=== PATIENT | female | born 1990 | race Caucasian/White ===

== ENCOUNTER 2017-08-14 18:20 | Inpatient (IN) | payer BC ==
[2017-08-14] MEDS ORDERED: Ondansetron 4 MG/2 ML SDV IVPUSH PRN ×2 (19:39→19:44)
[2017-08-14] MEDS ORDERED: Acetaminophen 325 MG Tab PO PRN (19:39)
[2017-08-14] MEDS ORDERED: Ampicillin 2 GM in Sodium Chloride 0.9% 100 ML IV ONE (19:39)
[2017-08-14] MEDS ORDERED: Sodium Chloride 0.9% 10 ML Syringe FLUSH PRN (19:39)
[2017-08-14] MEDS ORDERED: fentaNYL 100 MCG/2 ML SDV EPIDUR PRN (19:44)
[2017-08-14] MEDS ORDERED: diphenhydrAMINE 50 MG/ML SDV IVPUSH PRN (19:44)
[2017-08-14] MEDS ORDERED: ePHEDrine 50 MG/ML SDV IVPUSH PRN (19:44)
[2017-08-14] MEDS ORDERED: Oxytocin/Lactated Ringers 10 UNIT/1,000 ML BAG IV SCH (19:45)
[2017-08-14] MEDS: Lactated Ringers 1,000 ML IV SCH ×2 (20:30→22:25)
--- NOTE | 2017-08-14 20:52 | PCM.LDHP ---
L&D History of Present Illness - General Date of Service: 08/14/17 Admit Problem/Dx: Patient Status Order with Admit Dx/Problem 08/14/17 19:39 Patient Status [ADT] Routine Admission Diagnosis/Problem Admission Diagnosis/Problem Source of Information: Patient History Limitations: Reports: No Limitations - History of Present Illness Introduction:: Ivet Gerber is a 27-year-old at 40 weeks 4 days by LMP consistent with 21 week ultrasound. She presents secondary to increased contractions that started approximately 3 AM on 08/14/2017. She reports that she had a small amount of leaking of fluid at that time and her contractions started to increase. She reports that this continue to increased throughout the day and were more regular with contractions about every 4 minutes before she came into the hospital. She also reports that the contractions had increased in strength. She reports good movement. She reports that she is having a small amount of bleeding with some of the mucus discharge. Denies any fevers or chills. Denies any nausea or vomiting. Timing/Duration: Reports: gradual onset Location, : Reports: Abdomen, Lower back (About every 4 minutes) Severity: Moderate Present Illness Comments:: Ivet Gerber is a 27-year-old at 40 weeks and 4 days who has routine care with Dr. Cora Shirley. She started care at 4 weeks. Her has been overall uncomplicated. Her initial labs show A - blood type with negative antibodies. She received RhoGAM at 28 weeks. Her hematocrit on 01/06/2017 was 42.8% with hemoglobin of 15.2. Platelets were 214. Repeat platelets exam on 05/09/2017 was 165. Her hepatitis B surface antigen was negative, HIV negative, rubella immune, RPR negative. Her Pap smear was normal in August 2015. Gonorrhea and chlamydia were negative. Urine culture was negative. She had an elevated 1 hour with level of 140. She was diagnosed with gestational diabetes based on an abnormal 3 hour values of 1 hour of 183 and 2 hour of 168, fasting was 81 and three-hour was 144. She was GBS positive. The only other complication of her is history of epilepsy that has been well controlled on Keppra. She denies any seizures throughout the and has not had to change her medication dose her . She has had a 28 pound weight gain throughout . She is also noted to have a low-lying placenta early in that resolved on her ultrasounds. - Related Data Allergies/Adverse Reactions: Allergies Allergy/AdvReac Type Severity Reaction Status Date / Time hydrocodone Allergy Rash Verified 08/14/17 18:38 Home Medications: Home Meds PNV95/Ferrous Fumarate/FA [ Tablet] 1 each PO DAILY 08/14/17 [History] levETIRAcetam [Keppra Xr] 2,500 mg PO DAILY 08/14/17 [History] Past Medical History : 1 Para: 0 LMP (Approximate): Other (See Below) (11/03/2016 with [facility] of 08/10/2017) Neurological History: Reports: Seizure - Past Surgical History GI Surgical History: Reports: None Female Surgical History: Reports: None Social & Family History - Tobacco Use Smoking Status *Q: Never Smoker - Alcohol Use Alcohol Use History: No - Recreational Drug Use Recreational Drug Use: No - Sexual History Sexual History: Reports: Sexually Active, Single Partner - Living Situation & Occupation Living situation: Reports: H&P Review of Systems - Review of Systems: Review Of Systems: See Below General: Denies: Fever, Chills HEENT: Denies: Visual Changes Pulmonary: Denies: Shortness of Breath, Wheezing, Cough Cardiovascular: Denies: Chest Pain, Palpitations Gastrointestinal: Denies: Abdominal Pain, Constipation, Diarrhea, Nausea, Vomiting Genitourinary: Denies: Dysuria, Frequency, Burning, Pain, Urgency Musculoskeletal: Denies: Joint Pain, Muscle Pain Skin: Denies: Rash Psychiatric: Denies: Depression Neurological: Denies: Headache, Seizure (No recent seizures throughout ) L&D Exam - Exam Exam: See Below - Vital Signs Weight: 73.255 kg - OB Specific Contraction Duration (sec): 45-60 Contraction Frequency (min): 4 Contraction Intensity: Moderate to Strong Movement: Active Heart Tones: Present Heart Tones per Min: 130 (Positive accelerations, occasional variable decelerations) Heart Rate (FHR) Variability: Moderate (6-25 bmp) Presentation: Vertex Estimated Weight: 8 pounds by Selwyn's - Fernandez Score Fernandez Score Cervix Position: Midposition Fernandez Score Consistency: Medium Fernandez Score Effacement: 51-70% Fernandez Score Dilation: 3-4 cm Fernandez Score 's Station: -3 Fernandez Score Total: 6 - Exam General: Alert, Oriented HEENT: EOMI Neck: Supple, Trachea Midline Lungs: Clear to Auscultation, Normal Respiratory Effort Cardiovascular: Regular Rate, Regular Rhythm GI/Abdominal Exam: Soft, Non-Tender Genitourinary: Normal external exam, Cervical dilitation. No: Cervix motion tenderness, Vaginal bleeding, Vaginal discharge, Vaginal lesions Back Exam: Normal Inspection. No: CVA Tenderness (L), CVA Tenderness (R) Extremities: Pedal Edema (1+) Skin: Warm, Dry, Intact DTR: 1+: Bicep (L), 2+: Bicep (R) Psychiatric: Alert, Normal Affect, Normal Mood - Patient Data Lab Results Last 24 hrs: Laboratory Results - last 24 hr 08/14/17 08/14/17 Range/Units 20:00 20:00 WBC 12.77 H (3.98-10.04) K/mm3 RBC 4.52 (3.98-5.22) M/mm3 Hgb 14.5 (11.2-15.7) gm/L Hct 41.0 (34.1-44.9) % MCV 90.7 (79.4-94.8) fl MCH 32.1 (25.6-32.2) pg MCHC 35.4 (32.2-35.5) g/dl RDW Std Deviation 42.5 (36.4-46.3) fL Plt Count 167 L (182-369) K/mm3 MPV 11.4 (9.4-12.3) fl Neut % (Auto) 80.2 H (34.0-71.1) % Lymph % (Auto) 12.8 L (19.3-51.7) % [place] % (Auto) 6.3 (4.7-12.5) % Eos % (Auto) 0.4 L (0.7-5.8) Baso % (Auto) 0.1 (0.1-1.2) % Neut # (Auto) 10.24 H (1.56-6.13) K/mm3 Lymph # (Auto) 1.64 (1.18-3.74) K/mm3 [place] # (Auto) 0.81 H (0.24-0.36) K/mm3 Eos # (Auto) 0.05 (0.04-0.36) K/mm3 Baso # (Auto) 0.01 (0.01-0.08) K/mm3 BUN 14 (7-18) mg/dL Creatinine 0.8 (0.55-1.02) mg/dL Est Cr Clr Drug Dosing 80.18 mL/min Estimated GFR (MDRD) > 60 (>60) mL/min Uric Acid 4.9 (2.6-6.0) mg/dL AST 15 (15-37) U/L ALT 18 (14-59) U/L Lactate Dehydrogenase 203 (81-234) U/L Result Diagrams: 08/14/17 20:00 08/14/17 20:00 - Problem List (1) 40 weeks gestation of SNOMED Code(s): 81338327 ICD Code: Z3A.40 - 40 WEEKS GESTATION OF Status: Acute Current Visit: Yes (2) Spontaneous onset of labor SNOMED Code(s): 05946919 ICD Code: [id number] - Status: Acute Current Visit: Yes (3) Epilepsy SNOMED Code(s): 16655896 ICD Code: G40.909 - EPILEPSY, UNSP, NOT INTRACTABLE, WITHOUT STATUS EPILEPTICUS Status: Acute Current Visit: Yes (4) Rh negative status during , third trimester, single gestation SNOMED Code(s): 376627273 ICD Code: O09.893 - SUPERVISION OF OTHER HIGH RISK PREGNANCIES, THIRD TRIMESTER Status: Acute Current Visit: Yes (5) GBS (group B Streptococcus carrier), +RV culture, currently SNOMED Code(s): 17447526 ICD Code: O99.820 - STREPTOCOCCUS B CARRIER STATE COMPLICATING Status: Acute Current Visit: Yes (6) GDM (gestational diabetes mellitus), class A1 SNOMED Code(s): 30774561 ICD Code: O24.410 - GESTATIONAL DIABETES MELLITUS IN , DIET CONTROLLED Status: Acute Current Visit: Yes Problem List Initiated/Reviewed/Updated: Yes Orders Last 24hrs: Active Orders 24 hr Category Date Time Status Patient Status [ADT] Routine ADT 08/14/17 19:39 Active Activity as Tolerated [RC] PFP Care 08/14/17 19:39 Active Antiembolic Devices [RC] .Routine Care 08/14/17 19:40 Active Blood Glucose Check, Bedside [RC] Q2HR Care 08/14/17 19:45 Active Communication Order [RC] ASDIRECTED Care 08/14/17 19:39 Active Heart Tones [RC] ASDIRECTED Care 08/14/17 19:39 Active Heart Tones [RC] ASDIRECTED Care 08/14/17 19:40 Active Notify Provider Vital Signs [RC] PRN Care 08/14/17 19:43 Active Notify Provider [RC] PFP Care 08/14/17 19:39 Active Notify Provider [RC] PRN Care 08/14/17 19:39 Active Peripheral IV Care [RC] . DIRECTED Care 08/14/17 19:40 Active Pump Management, Intrathecal [RC] ASDIRECTED Care 08/14/17 19:43 Active Urinary Catheter Assessment [RC] ASDIRECTED Care 08/14/17 19:39 Active VTE/DVT Education [RC] PER UNIT ROUTINE Care 08/14/17 19:40 Active Vital Signs [RC] PER UNIT ROUTINE Care 08/14/17 19:39 Active CREATININE,URINE RAND [URCHEM] Routine Lab 08/14/17 19:47 Uncollected PROTEIN,URINE RANDOM [URCHEM] Routine Lab 08/14/17 19:46 Uncollected Acetaminophen [Tylenol] Med 08/14/17 19:39 Active 650 mg PO Q6H PRN Ampicillin 1 gm Med 08/15/17 00:00 Active Sodium Chloride 0.9% [Normal Saline] 100 ml IV Q4H Bupivacaine/fentaNYL/NS [fentaNYL/Bupivacaine/NS 2 MCG- Med 08/14/17 19:45 Active 0.125% 100 ML] 100 ml EPIDUR ASDIRECTED Lactated Ringers [Ringers, Lactated] 1,000 ml Med 08/14/17 19:45 Active IV ASDIRECTED Ondansetron [Zofran] Med 08/14/17 19:44 Active 4 mg IVPUSH ONETIME PRN Ondansetron [Zofran] Med 08/14/17 19:39 Active 4 mg IVPUSH Q4H PRN Oxytocin/Lactated Ringers [Pitocin in LR 10 Units/1,000 Med 08/14/17 19:45 Active ML] 10 unit in 1,000 ml IV .CONTINUOUS Sodium Chloride 0.9% [Saline Flush] Med 08/14/17 19:39 Active 10 ml FLUSH ASDIRECTED PRN diphenhydrAMINE [Benadryl] Med 08/14/17 19:44 Active 25 mg IVPUSH Q6H PRN ePHEDrine [ePHEDrine Sulfate] Med 08/14/17 19:44 Active 5 mg IVPUSH ASDIRECTED PRN fentaNYL [Sublimaze] Med 08/14/17 19:44 Active 100 mcg EPIDUR Q3H PRN DVT/VTE Prophylaxis Reflex [OM.PC] Routine Oth 08/14/17 19:39 Ordered Electronic Heart Tones Ext w TOCO [WOMSER] Ot 08/14/17 19:39 Ordered Routine Electronic Heart Tones Internal [WOMSER] Per Unit Oth 08/14/17 19:39 Ordered Routine PIH Panel [OM.PC] Routine Ot 08/14/17 19:39 Ordered Peripheral IV Insertion Adult [OM.PC] Routine Oth 08/14/17 19:39 Ordered Telemetry Monitoring [WOMSER] Routine Ot 08/14/17 19:39 Ordered Resuscitation Status Routine Resus Stat 08/14/17 19:39 Ordered Medication Orders Acetaminophen (Tylenol) 650 mg PO Q6H PRN PRN Reason: Pain (Mild 1-3) and fever Diphenhydramine HCl (Benadryl) 25 mg IVPUSH Q6H PRN PRN Reason: Pruritis Ephedrine Sulfate (Ephedrine Sulfate) 5 mg IVPUSH ASDIRECTED PRN PRN Reason: Hypotension Fentanyl (Sublimaze) 100 mcg EPIDUR Q3H PRN PRN Reason: Pain Fentanyl/Bupivacaine HCl (Fentanyl/Bupivacaine/Ns 2 Mcg-0.125% 100 Ml) 100 ml EPIDUR ASDIRECTED [facility] Ampicillin Sodium 1 gm/ Sodium (Chloride) 100 mls @ 200 mls/hr IV Q4H [facility] Lactated Ringer's (Ringers, Lactated) 1,000 mls @ 100 mls/hr IV ASDIRECTED [facility] Last Admin: 08/14/17 20:30 Dose: 100 mls/hr Oxytocin/Lactated Ringer's (Pitocin In Lr 10 Units/1,000 Ml) 10 unit in 1,000 mls @ 100 mls/hr IV .CONTINUOUS [facility] Ondansetron HCl (Zofran) 4 mg IVPUSH ONETIME PRN PRN Reason: Nausea/Vomiting Ondansetron HCl (Zofran) 4 mg IVPUSH Q4H PRN PRN Reason: Nausea/Vomiting Sodium Chloride (Saline Flush) 10 ml FLUSH ASDIRECTED PRN PRN Reason: Keep Vein Open Assessment/Plan Comment:: * Patient desires to continue to monitor for cervical change with without augmentation of labor. Will recheck cervix at approximately 00 30 for cervical change and consider augmentation with Pitocin at that time. * CBC, platelets, creatinine, AST, LT all within normal limits. Follow-up on urine protein to creatinine ratio. This is being checked secondary to elevated blood pressure of 140/100 on initial presentation. We'll continue to monitor blood pressures closely throughout labor. * Patient may have an epidural for anesthesia as desired. * Ampicillin 2 g now and then 1 g every 4 hours until delivery for GBS prophylaxis * IV fluids at 125 mL per hour * Patient to continue Keppra for history of epilepsy * Will check fingerstick blood glucose every 2 hours while in labor. If abnormally high (greater than 110) will consider initiation of insulin drip. * Anticipate vaginal delivery unless otherwise indicated Moise De Paz M.D. 9:12 PM 08/14/2017
[2017-08-14] MEDS: Bupivacaine/fentaNYL/NS 100 ML Bag EPIDUR SCH (22:39)
[2017-08-15] MEDS: Lactated Ringers 1,000 ML IV SCH (00:22)
[2017-08-15] MEDS ORDERED: Oxytocin/Lactated Ringers 10 UNIT/1,000 ML BAG IV SCH (01:00)
[2017-08-15] MEDS: Ampicillin 1 GM in Sodium Chloride 0.9% 100 ML IV SCH ×4 (01:01→17:58)
--- NOTE | 2017-08-15 01:15 | PCM.PREANE ---
Preanesthetic Assessment - Procedure Proposed Procedure: LAUERNCE - Anesthesia/Transfusion/Family Hx Anesthesia History: Prior Anesthesia Without Reaction Family History of Anesthesia Reaction: No Transfusion History: No Prior Transfusion(s) - Review of Systems General: No Symptoms Pulmonary: No Symptoms Cardiovascular: No Symptoms Gastrointestinal: Other (GERD with ) Neurological: Other (seizure disorder, last seizure was 12 years ago. Takes keppra daily) Other: Reports: Diabetes (Gestational DM) - Physical Assessment NPO Status Date: 08/14/17 NPO Status Time: 17:00 O2 Sat by Pulse Oximetry: 99 Respiratory Rate: 14 Vital Signs: Last Vital Signs Temp 36.6 C 08/14/17 21:50 Pulse 81 08/14/17 21:50 Resp 14 08/14/17 21:50 BP 117/72 08/14/17 21:50 Pulse Ox 99 08/14/17 21:50 Height: 1.56 m Weight: 73.255 kg ASA Class: 2 Mental Status: Alert & Oriented x3 Airway Class: Mallampati = 1 Dentition: Reports: Normal Dentition Thyro-Mental Finger Breadths: 3 Mouth Opening Finger Breadths: 3 ROM/Head Extension: Full Lungs: Clear to Auscultation, Normal Respiratory Effort Cardiovascular: Regular Rate, Regular Rhythm - Lab Values: Laboratory Last Values WBC 12.77 K/mm3 (3.98-10.04) H 08/14/17 20:00 RBC 4.52 M/mm3 (3.98-5.22) 08/14/17 20:00 Hgb 14.5 gm/L (11.2-15.7) 08/14/17 20:00 Hct 41.0 % (34.1-44.9) 08/14/17 20:00 MCV 90.7 fl (79.4-94.8) 08/14/17 20:00 MCH 32.1 pg (25.6-32.2) 08/14/17 20:00 MCHC 35.4 g/dl (32.2-35.5) 08/14/17 20:00 RDW Std Deviation 42.5 fL (36.4-46.3) 08/14/17 20:00 Plt Count 167 K/mm3 (182-369) L 08/14/17 20:00 MPV 11.4 fl (9.4-12.3) 08/14/17 20:00 Neut % (Auto) 80.2 % (34.0-71.1) H 08/14/17 20:00 Lymph % (Auto) 12.8 % (19.3-51.7) L 08/14/17 20:00 [place] % (Auto) 6.3 % (4.7-12.5) 08/14/17 20:00 Eos % (Auto) 0.4 (0.7-5.8) L 08/14/17 20:00 Baso % (Auto) 0.1 % (0.1-1.2) 08/14/17 20:00 Neut # (Auto) 10.24 K/mm3 (1.56-6.13) H 08/14/17 20:00 Lymph # (Auto) 1.64 K/mm3 (1.18-3.74) 08/14/17 20:00 [place] # (Auto) 0.81 K/mm3 (0.24-0.36) H 08/14/17 20:00 Eos # (Auto) 0.05 K/mm3 (0.04-0.36) 08/14/17 20:00 Baso # (Auto) 0.01 K/mm3 (0.01-0.08) 08/14/17 20:00 BUN 14 mg/dL (7-18) 08/14/17 20:00 Creatinine 0.8 mg/dL (0.55-1.02) 08/14/17 20:00 Est Cr Clr Drug Dosing 80.18 mL/min 08/14/17 20:00 Estimated GFR (MDRD) > 60 mL/min (>60) 08/14/17 20:00 POC Glucose 86 mg/dL (70-105) 08/15/17 00:00 Uric Acid 4.9 mg/dL (2.6-6.0) 08/14/17 20:00 AST 15 U/L (15-37) 08/14/17 20:00 ALT 18 U/L (14-59) 08/14/17 20:00 Lactate Dehydrogenase 203 U/L (81-234) 08/14/17 20:00 Ur Random Creatinine 17.9 mg/dL (30.0-125.0) L 08/14/17 21:30 U Random Total Protein 139.8 mg/dL (0.0-11.8) H 08/14/17 21:30 - Allergies Allergies/Adverse Reactions: Allergies Allergy/AdvReac Type Severity Reaction Status Date / Time hydrocodone Allergy Rash Verified 08/14/17 18:38 - Blood Blood Available: No Product(s) Available: None - Anesthesia Plan Pre-Op Medication Ordered: None - Acknowledgements Anesthesia Type Planned: Epidural Pt an Appropriate Candidate for the Planned Anesthesia: Yes Alternatives and Risks of Anesthesia Discussed w Pt/Guardian: Yes Pt/Guardian Understands and Agrees with Anesthesia Plan: Yes PreAnesthesia Questionnaire Neurological History: Reports: Seizure - Past Surgical History GI Surgical History: Reports: None Female Surgical History: Reports: None - SUBSTANCE USE Smoking Status *Q: Never Smoker Recreational Drug Use History: No - HOME MEDS Home Medications: Home Meds PNV95/Ferrous Fumarate/FA [ Tablet] 1 each PO DAILY 08/14/17 [History] levETIRAcetam [Keppra Xr] 2,500 mg PO DAILY 08/14/17 [History] - CURRENT (IN HOUSE) MEDS Current Meds: Current Medications Acetaminophen (Tylenol) 650 mg PO Q6H PRN PRN Reason: Pain (Mild 1-3) and fever Diphenhydramine HCl (Benadryl) 25 mg IVPUSH Q6H PRN PRN Reason: Pruritis Ephedrine Sulfate (Ephedrine Sulfate) 5 mg IVPUSH ASDIRECTED PRN PRN Reason: Hypotension Fentanyl (Sublimaze) 100 mcg EPIDUR Q3H PRN PRN Reason: Pain Last Admin: 08/14/17 22:39 Dose: 100 mcg Fentanyl/Bupivacaine HCl (Fentanyl/Bupivacaine/Ns 2 Mcg-0.125% 100 Ml) 100 ml EPIDUR ASDIRECTED [facility] Last Admin: 08/14/17 22:39 Dose: 100 ml Ampicillin Sodium 1 gm/ Sodium (Chloride) 100 mls @ 200 mls/hr IV Q4H [facility] Last Admin: 08/15/17 01:01 Dose: 200 mls/hr Lactated Ringer's (Ringers, Lactated) 1,000 mls @ 100 mls/hr IV ASDIRECTED [facility] Last Admin: 08/15/17 00:22 Dose: 100 mls/hr Oxytocin/Lactated Ringer's (Pitocin In Lr 10 Units/1,000 Ml) 10 unit in 1,000 mls @ 100 mls/hr IV .CONTINUOUS [facility] Oxytocin/Lactated Ringer's (Pitocin In Lr 10 Units/1,000 Ml) 10 unit in 1,000 mls @ 12 mls/hr IV TITRATE [facility]; 2 MUNITS/MIN PRN Reason: Protocol Last Admin: 08/15/17 01:12 Dose: 2 munits/min, 12 mls/hr Ondansetron HCl (Zofran) 4 mg IVPUSH ONETIME PRN PRN Reason: Nausea/Vomiting Ondansetron HCl (Zofran) 4 mg IVPUSH Q4H PRN PRN Reason: Nausea/Vomiting Sodium Chloride (Saline Flush) 10 ml FLUSH ASDIRECTED PRN PRN Reason: Keep Vein Open Discontinued Medications Ampicillin Sodium 2 gm/ Sodium (Chloride) 100 mls @ 200 mls/hr IV ONETIME ONE Stop: 08/14/17 20:08 Last Admin: 08/14/17 20:33 Dose: 200 mls/hr
[2017-08-15] MEDS ORDERED: Sodium Chloride 0.9% 1,000 ML ONE (04:57)
--- NOTE | 2017-08-15 05:09 | PCM.PNLD ---
Labor Progress Note - VS & Meds Vital Signs: Last Vital Signs Temp 36.6 C 08/14/17 21:50 Pulse 81 08/14/17 21:50 Resp 14 08/15/17 01:15 BP 117/72 08/14/17 21:50 Pulse Ox 99 08/15/17 01:15 Active Medications: Current Medications Acetaminophen (Tylenol) 650 mg PO Q6H PRN PRN Reason: Pain (Mild 1-3) and fever Diphenhydramine HCl (Benadryl) 25 mg IVPUSH Q6H PRN PRN Reason: Pruritis Ephedrine Sulfate (Ephedrine Sulfate) 5 mg IVPUSH ASDIRECTED PRN PRN Reason: Hypotension Fentanyl (Sublimaze) 100 mcg EPIDUR Q3H PRN PRN Reason: Pain Last Admin: 08/14/17 22:39 Dose: 100 mcg Fentanyl/Bupivacaine HCl (Fentanyl/Bupivacaine/Ns 2 Mcg-0.125% 100 Ml) 100 ml EPIDUR ASDIRECTED [facility] Last Admin: 08/14/17 22:39 Dose: 100 ml Ampicillin Sodium 1 gm/ Sodium (Chloride) 100 mls @ 200 mls/hr IV Q4H [facility] Last Admin: 08/15/17 04:30 Dose: 200 mls/hr Lactated Ringer's (Ringers, Lactated) 1,000 mls @ 100 mls/hr IV ASDIRECTED [facility] Last Admin: 08/15/17 00:22 Dose: 100 mls/hr Oxytocin/Lactated Ringer's (Pitocin In Lr 10 Units/1,000 Ml) 10 unit in 1,000 mls @ 100 mls/hr IV .CONTINUOUS [facility] Oxytocin/Lactated Ringer's (Pitocin In Lr 10 Units/1,000 Ml) 10 unit in 1,000 mls @ 12 mls/hr IV TITRATE [facility]; 2 MUNITS/MIN PRN Reason: Protocol Last Titration: 08/15/17 02:37 Dose: 0 munits/min, 0 mls/hr Ondansetron HCl (Zofran) 4 mg IVPUSH ONETIME PRN PRN Reason: Nausea/Vomiting Ondansetron HCl (Zofran) 4 mg IVPUSH Q4H PRN PRN Reason: Nausea/Vomiting Sodium Chloride (Saline Flush) 10 ml FLUSH ASDIRECTED PRN PRN Reason: Keep Vein Open Discontinued Medications Ampicillin Sodium 2 gm/ Sodium (Chloride) 100 mls @ 200 mls/hr IV ONETIME ONE Stop: 08/14/17 20:08 Last Admin: 08/14/17 20:33 Dose: 200 mls/hr Sodium Chloride (Normal Saline) Confirm Administered Dose 1,000 mls @ as directed .ROUTE .STK-MED ONE Stop: 08/15/17 04:58 - Uterine Contractions Uterine Monitoring Mode: External [place] Contraction Frequency (min): 4 Contraction Duration (sec): 45-60 Contraction Intensity: Moderate to Strong Uterine Resting Tone: Soft - Monitoring Monitor Mode: Doppler/Auscultation Heart Rate (FHR) Baseline: 130 Heart Rate (FHR) Variability: Moderate (6-25 bmp) Accelerations: Present, 15x15 Decelerations: Variable, Recurrent (>50% x 20 min) Strip Review: Category II - Vaginal Exam Dilation (cm): 6 Effacement (Percent): 80 Station: -2 Cervical Position: Anterior Sterile Vaginal Exam Performed By: Moise De Paz - Labor Progress (Free Text) Labor Progress: IUPC placed and initiated amnioinfusion for recurrent variable decelerations that occur with over 50% of contractions. IUPC placed without difficulty and mother and baby tolerated placement well. Moise De Paz MD 5:09 AM 08/15/17
[2017-08-15] MEDS ORDERED: Sodium Chloride 0.9% 1,000 ML IV SCH (05:10)
[2017-08-15] MEDS: Bupivacaine/fentaNYL/NS 100 ML Bag EPIDUR SCH (06:18)
--- NOTE | 2017-08-15 07:57 | PCM.SN ---
- Free Text/Narrative Note: 0700 Assumed care for this patient at 0700. Presented last night in labor, about 2- 3 cm dilated. Had some variable decelerations at times overnight which increased in frequency after AROM. Amnioinfusion started around 0500 this AM. Still with some variables since, but not repetitive and with moderate variability in between. SVE at 0645 by nursing was 7 / 90% / 2-. Will continue to monitor closely at this time. Defer re-starting pitocin. Check again at least by 0900 if not indicated sooner. Patient agrees with plan of care Cora Shirley MD
--- NOTE | 2017-08-15 10:02 | PCM.PNLD ---
Labor Progress Note - VS & Meds Vital Signs: Last Vital Signs Temp 36.6 C 08/14/17 21:50 Pulse 81 08/14/17 21:50 Resp 14 08/15/17 01:15 BP 117/72 08/14/17 21:50 Pulse Ox 99 08/15/17 01:15 Active Medications: Current Medications Acetaminophen (Tylenol) 650 mg PO Q6H PRN PRN Reason: Pain (Mild 1-3) and fever Diphenhydramine HCl (Benadryl) 25 mg IVPUSH Q6H PRN PRN Reason: Pruritis Ephedrine Sulfate (Ephedrine Sulfate) 5 mg IVPUSH ASDIRECTED PRN PRN Reason: Hypotension Fentanyl (Sublimaze) 100 mcg EPIDUR Q3H PRN PRN Reason: Pain Last Admin: 08/14/17 22:39 Dose: 100 mcg Fentanyl/Bupivacaine HCl (Fentanyl/Bupivacaine/Ns 2 Mcg-0.125% 100 Ml) 100 ml EPIDUR ASDIRECTED [facility] Last Admin: 08/15/17 06:18 Dose: 100 ml Ampicillin Sodium 1 gm/ Sodium (Chloride) 100 mls @ 200 mls/hr IV Q4H [facility] Last Admin: 08/15/17 08:23 Dose: 200 mls/hr Lactated Ringer's (Ringers, Lactated) 1,000 mls @ 100 mls/hr IV ASDIRECTED [facility] Last Admin: 08/15/17 00:22 Dose: 100 mls/hr Oxytocin/Lactated Ringer's (Pitocin In Lr 10 Units/1,000 Ml) 10 unit in 1,000 mls @ 100 mls/hr IV .CONTINUOUS [facility] Oxytocin/Lactated Ringer's (Pitocin In Lr 10 Units/1,000 Ml) 10 unit in 1,000 mls @ 12 mls/hr IV TITRATE [facility]; 2 MUNITS/MIN PRN Reason: Protocol Last Titration: 08/15/17 09:50 Dose: 1 munits/min, 6 mls/hr Sodium Chloride (Normal Saline) 1,000 mls @ 200 mls/hr IV ASDIRECTED [facility] PRN Reason: Protocol Last Admin: 08/15/17 05:10 Dose: 200 mls/hr Ondansetron HCl (Zofran) 4 mg IVPUSH ONETIME PRN PRN Reason: Nausea/Vomiting Ondansetron HCl (Zofran) 4 mg IVPUSH Q4H PRN PRN Reason: Nausea/Vomiting Sodium Chloride (Saline Flush) 10 ml FLUSH ASDIRECTED PRN PRN Reason: Keep Vein Open Discontinued Medications Ampicillin Sodium 2 gm/ Sodium (Chloride) 100 mls @ 200 mls/hr IV ONETIME ONE Stop: 08/14/17 20:08 Last Admin: 08/14/17 20:33 Dose: 200 mls/hr Sodium Chloride (Normal Saline) Confirm Administered Dose 1,000 mls @ as directed .ROUTE .STK-MED ONE Stop: 08/15/17 04:58 Last Admin: 08/15/17 05:00 Dose: Not Given - Uterine Contractions Uterine Monitoring Mode: IUPC Contraction Intensity: Moderate to Strong Uterine Resting Tone: Soft - Monitoring Monitor Mode: External Ultrasound Heart Rate (FHR) Baseline: 135 Heart Rate (FHR) Variability: Moderate (6-25 bmp) Accelerations: Present, 15x15 Decelerations: Variable, Recurrent (>50% x 20 min) Strip Review: Category II - Vaginal Exam Dilation (cm): 7-8 Effacement (Percent): 100 Station: 0 Cervical Position: Anterior - Labor Progress (Free Text) Labor Progress: Patient has had continued variable decelerations. Some of these have been deeper into the 80-90's and wider. Reviewed with patient findings on tracing. Her cervix has been similar since about 0645 this AM. Can start pitocin, but the concern with this is worsening variable decelerations. We could also proceed immediately to a . Reviewed risks and benefits of both options. At this time patient agreeable to trial of pitocin. Will start at 1. IUPC removed as well as does not seem to be reducing variable decelerations. Will stay on unit to continue to monitor closely
[2017-08-15] MEDS ORDERED: Metoclopramide 10 MG/2 ML SDV ONE (10:25)
[2017-08-15] MEDS ORDERED: Citric Acid/Sodium Citrate Solution 30 ML Cup ONE (10:25)
[2017-08-15] MEDS ORDERED: Metoclopramide 10 MG/2 ML SDV IVPUSH ONE (10:28)
[2017-08-15] MEDS ORDERED: Citric Acid/Sodium Citrate Solution 30 ML Cup PO ONE (10:28)
[2017-08-15] MEDS ORDERED: ceFAZolin 2 GM in Premix Bag 1 BAG IV ONE (10:28)
--- NOTE | 2017-08-15 10:28 | PCM.SN ---
- Free Text/Narrative Note: Patient has been on 1 of pitocin. Still with some variables, largest of which down to the 90's for 1 minute. Discussed with patient I don't think we can continue to increase pitocin and her SVE remains similar as expected. Reviewed moving forward with PLTCS and she agrees with this. Cora Shirley MD
--- NOTE | 2017-08-15 10:30 | PCM.OPNOTE ---
- General Post-Op/Procedure Note Date of Surgery/Procedure: 08/15/17 Operative Procedure(s): Primary Low Transverse Findings: Baby boy in a vertex presentation, straight OP, with triple nuchal cord. Weight of 6 lbs 11 oz. APGARS of 4, 6, 8. Normal appearance of the uterus, fallopian tubes, and ovaries otherwise. Pre Op Diagnosis: 40 5/7 wks gestation. GODMA1. FTP in 1st stage. NRFS - recurrent variables despite amnioinfusion Post-Op Diagnosis: As above - straight OP presentation to baby with triple nuchal Anesthesia Technique: Epidural Primary Surgeon: Cora Shirley Anesthesia Provider: Kiet Stanley Pathology: Cord blood collected. Placenta discarded Fluid Replacement, Intraop: 1,700 Output, Urine Amount: 450 EBL in mLs: 300 Complications: None Condition: Good Free Text/Narrative:: The risks, benefits, indications, potential complications, and alternatives were explained to the patient and informed consent obtained. After induction of anesthesia, the patient was placed in a supine position and then draped and prepped in the usual sterile manner. A Pfannenstiel incision was made and carried down through the subcutaneous tissue to the fascia. Fascial incision was made and extended transversely. The fascia was from the underlying rectus tissue superiorly and inferiorly. The peritoneum was identified and entered. Peritoneal incision was extended longitudinally. The utero-vesical peritoneal reflection was incised transversely and the bladder flap was bluntly freed from the lower uterine segment. A low transverse uterine incision was made sharply with a scalpel and extended bluntly in a cephalocaudad direction. A hand was placed into the uterus and head delivered through the hysterotomy. Triple nuchal then reduced. Remainder of infant then delivered After the umbilical cord was clamped and cut cord blood was obtained for evaluation. The placenta was removed intact and appeared normal. The uterus was exteriorized and cleared of clots. The uterine outline, tubes and ovaries appeared normal. The uterine incision was closed with running locked sutures of 0 Vicryl. Hemostasis was obtained with a second imbricating layer of 0 vicryl. The uterus was then placed back into the abdomen. The infracolic gutters were cleared of blood clots. The fascia was then reapproximated with running sutures of 0 Vicryl. The sucutaneous tissue was irrigated with sterile warm normal saline, hemostasis obtained with cautery. The layer was closed with a running 0 vicryl suture. The skin was reapproximated with running Subcuticular 4-0 monocryl sutures. Instrument, sponge, and needle counts were correct prior the abdominal closure and at the conclusion of the case.
[2017-08-15] MEDS ORDERED: ceFAZolin 1 GM Vial ONE (10:43)
[2017-08-15] MEDS ORDERED: Morphine PF 10 MG/10 ML SDV ONE (10:43)
[2017-08-15] MEDS ORDERED: Oxytocin 10 Units/1 ML SDV ONE (10:45)
[2017-08-15] MEDS ORDERED: Lidocaine 2% with EPINEPHrine 1:200,000 20 ML SDV ONE (10:45)
[2017-08-15] MEDS ORDERED: Ketorolac 30 MG/ML SDV ONE (11:33)
[2017-08-15] MEDS ORDERED: fentaNYL 100 MCG/2 ML SDV IVPUSH PRN (11:44)
[2017-08-15] MEDS ORDERED: diphenhydrAMINE 50 MG/ML SDV IVPUSH PRN ×2 (11:44→12:56)
[2017-08-15] MEDS ORDERED: Meperidine PF 50 MG/ML Syringe IVPUSH ONE (11:45)
--- NOTE | 2017-08-15 11:47 | PCM.POSTAN ---
POST ANESTHESIA ASSESSMENT - MENTAL STATUS Mental Status: Alert, Oriented - VITAL SIGNS Pulse Rate: 96 SaO2: 100 Resp Rate: 16 Blood Pressure: 109/71 Temperature: 98.5 C - RESPIRATORY Respiratory Status: Respiratory Rate WNL, Airway Patent, O2 Saturation Stable - CARDIOVASCULAR CV Status: Pulse Rate WNL, Blood Pressure Stable - GASTROINTESTINAL GI Status: No Symptoms - PAIN Pain Score: 0 - POST OP HYDRATION Hydration Status: Adequate & Stable - OBSERVATIONS Free Text/Narrative:: no anesthesia complications noted
[2017-08-15] MEDS ORDERED: Ondansetron 4 MG/2 ML SDV IV PRN (12:56)
[2017-08-15] MEDS ORDERED: Naloxone 0.4 MG/ML SDV IVPUSH PRN (12:56)
[2017-08-15] MEDS ORDERED: Lanolin 100% Cream 7 GM Tube TOP PRN (12:56)
[2017-08-15] MEDS ORDERED: Dextrose 5%-Lactated Ringers 1,000 ML IV SCH (12:56)
[2017-08-15] MEDS: Ketorolac 30 MG/ML SDV IVPUSH SCH (17:41)
[2017-08-15] MEDS: Docusate Sodium 100 MG Cap PO PRN (17:41)
[2017-08-15] MEDS: Simethicone 80 MG Tab.Chew PO SCH ×2 (21:59)
[2017-08-15] MEDS ORDERED: Bupivacaine 0.25% 10 ML SDV ONE (22:22)
[2017-08-16] MEDS: Ketorolac 30 MG/ML SDV IVPUSH SCH ×2 (00:49→05:26)
[2017-08-16] MEDS: Simethicone 80 MG Tab.Chew PO SCH ×4 (07:23→22:07)
--- NOTE | 2017-08-16 07:26 | PCM.PNPP ---
- General Info Date of Service: 08/16/17 Functional Status: Reports: Pain Controlled, Tolerating Diet, Ambulating, Urinating - Review of Systems General: Reports: No Symptoms Pulmonary: Reports: No Symptoms Cardiovascular: Reports: No Symptoms Gastrointestinal: Reports: Abdominal Pain (manageable ) Genitourinary: Reports: No Symptoms Musculoskeletal: Reports: No Symptoms - Patient Data Vital Signs - Most Recent: Last Vital Signs Temp 37.0 C 08/16/17 04:01 Pulse 87 08/16/17 04:02 Resp 16 08/16/17 07:00 BP 107/64 08/16/17 04:01 Pulse Ox 100 08/16/17 07:00 Weight - Most Recent: 73.255 kg I&O - Last 24 Hours: Intake & Output 08/15/17 08/16/17 08/16/17 22:59 06:59 14:59 Intake Total 1004 Output Total 975 2450 Balance 29 -2450 Lab Results - Last 24 Hours: Laboratory Results - last 24 hr 08/15/17 08/15/17 08/15/17 Range/Units 06:02 08:15 09:46 WBC (3.98-10.04) K/mm3 RBC (3.98-5.22) M/mm3 Hgb (11.2-15.7) gm/L Hct (34.1-44.9) % MCV (79.4-94.8) fl MCH (25.6-32.2) pg MCHC (32.2-35.5) g/dl RDW Std Deviation (36.4-46.3) fL Plt Count (182-369) K/mm3 MPV (9.4-12.3) fl POC Glucose 86 104 74 (70-105) mg/dL Blood Type Gel Antibody Screen Screen RhIG Candidate? Rhogam Indicated 08/15/17 08/16/17 Range/Units 16:00 06:50 WBC 12.78 H (3.98-10.04) K/mm3 RBC 3.84 L (3.98-5.22) M/mm3 Hgb 12.1 (11.2-15.7) gm/L Hct 35.5 (34.1-44.9) % MCV 92.4 (79.4-94.8) fl MCH 31.5 (25.6-32.2) pg MCHC 34.1 (32.2-35.5) g/dl RDW Std Deviation 43.1 (36.4-46.3) fL Plt Count 137 L (182-369) K/mm3 MPV 11.4 (9.4-12.3) fl POC Glucose (70-105) mg/dL Blood Type A NEGATIVE Gel Antibody Screen Positive Screen 1 ros/5 flds - neg RhIG Candidate? Yes Rhogam Indicated Yes, baby rh pos H Med Orders - Current: Current Medications Diphenhydramine HCl (Benadryl) 25 mg IVPUSH Q6H PRN PRN Reason: Itching Diphenhydramine HCl (Benadryl) 25 mg IVPUSH Q6H PRN PRN Reason: Itching or Nausea Docusate Sodium (Colace) 100 mg PO Q12H PRN PRN Reason: Constipation Last Admin: 08/15/17 17:41 Dose: 100 mg Emollient Ointment (Lansinoh Hpa) 0 gm TOP ASDIRECTED PRN PRN Reason: Sore Nipples Ibuprofen (Motrin) 600 mg PO Q6H PRN PRN Reason: mild pain or fever Naloxone HCl (Narcan) 0.1 mg IVPUSH SEECOMMENT PRN PRN Reason: Respiratory Depression Ondansetron HCl (Zofran) 4 mg IV Q8H PRN PRN Reason: Nausea/Vomiting Oxycodone/Acetaminophen (Percocet 325-5 Mg) 2 tab PO Q4H PRN PRN Reason: Pain (moderate 4-6) Simethicone (Simethicone) 80 mg PO QIDACANDBED [facility] Last Admin: 08/15/17 21:59 Dose: 80 mg Discontinued Medications Acetaminophen (Tylenol) 650 mg PO Q6H PRN PRN Reason: Pain (Mild 1-3) and fever Bupivacaine HCl (Sensorcaine-Mpf 0.25%) 10 ml .ROUTE .STK-MED ONE Stop: 08/15/17 22:23 Cefazolin Sodium (Ancef) Confirm Administered Dose 2 gm .ROUTE .STK-MED ONE Stop: 08/15/17 10:44 Citric Acid/Sodium Citrate (Bicitra Solution) Confirm Administered Dose 30 ml .ROUTE .STK-MED ONE Stop: 08/15/17 10:26 Last Admin: 08/15/17 17:57 Dose: Not Given Citric Acid/Sodium Citrate (Bicitra Solution) 30 ml PO ONETIME ONE Stop: 08/15/17 10:29 Last Admin: 08/15/17 10:38 Dose: 30 ml Diphenhydramine HCl (Benadryl) 25 mg IVPUSH Q6H PRN PRN Reason: Pruritis Ephedrine Sulfate (Ephedrine Sulfate) 5 mg IVPUSH ASDIRECTED PRN PRN Reason: Hypotension Fentanyl (Sublimaze) 100 mcg EPIDUR Q3H PRN PRN Reason: Pain Last Admin: 08/14/17 22:39 Dose: 100 mcg Fentanyl (Sublimaze) 50 mcg IVPUSH Q5M PRN PRN Reason: PAIN Stop: 08/15/17 11:45 Fentanyl/Bupivacaine HCl (Fentanyl/Bupivacaine/Ns 2 Mcg-0.125% 100 Ml) 100 ml EPIDUR ASDIRECTED [facility] Last Admin: 08/15/17 06:18 Dose: 100 ml Ampicillin Sodium 2 gm/ Sodium (Chloride) 100 mls @ 200 mls/hr IV ONETIME ONE Stop: 08/14/17 20:08 Last Admin: 08/14/17 20:33 Dose: 200 mls/hr Ampicillin Sodium 1 gm/ Sodium (Chloride) 100 mls @ 200 mls/hr IV Q4H [facility] Last Admin: 08/15/17 17:58 Dose: Not Given Lactated Ringer's (Ringers, Lactated) 1,000 mls @ 100 mls/hr IV ASDIRECTED [facility] Last Admin: 08/15/17 00:22 Dose: 100 mls/hr Oxytocin/Lactated Ringer's (Pitocin In Lr 10 Units/1,000 Ml) 10 unit in 1,000 mls @ 100 mls/hr IV .CONTINUOUS [facility] Oxytocin/Lactated Ringer's (Pitocin In Lr 10 Units/1,000 Ml) 10 unit in 1,000 mls @ 12 mls/hr IV TITRATE [facility]; 2 MUNITS/MIN PRN Reason: Protocol Last Titration: 08/15/17 10:24 Dose: 0 munits/min, 0 mls/hr Sodium Chloride (Normal Saline) Confirm Administered Dose 1,000 mls @ as directed .ROUTE .STK-MED ONE Stop: 08/15/17 04:58 Last Admin: 08/15/17 05:00 Dose: Not Given Sodium Chloride (Normal Saline) 1,000 mls @ 200 mls/hr IV ASDIRECTED [facility] PRN Reason: Protocol Last Admin: 08/15/17 05:10 Dose: 200 mls/hr Cefazolin Sodium/Dextrose 2 gm (/ Premix) 50 mls @ 100 mls/hr IV ONETIME ONE Stop: 08/15/17 10:57 Last Admin: 08/15/17 17:59 Dose: Not Given Dextrose/Lactated Ringer's (Dextrose 5%-Lactated Ringers) 1,000 mls @ 125 mls/ hr IV ASDIRECTED [facility] Stop: 08/15/17 20:55 Last Admin: 08/15/17 13:02 Dose: 125 mls/hr Ketorolac Tromethamine (Toradol) Confirm Administered Dose 30 mg .ROUTE .STK- MED ONE Stop: 08/15/17 11:34 Ketorolac Tromethamine (Toradol) 30 mg IVPUSH Q6H [facility] Stop: 08/16/17 05:46 Last Admin: 08/16/17 05:26 Dose: 30 mg Lidocaine/Epinephrine (Xylocaine-Mpf 2%-Epi 1:200,000) Confirm Administered Dose 20 ml .ROUTE .STK-MED ONE Stop: 08/15/17 10:46 Meperidine HCl (Demerol) 12.5 mg IVPUSH ONETIME ONE Stop: 08/15/17 11:46 Last Admin: 08/15/17 14:53 Dose: Not Given Metoclopramide HCl (Reglan) Confirm Administered Dose 10 mg .ROUTE .STK-MED ONE Stop: 08/15/17 10:26 Last Admin: 08/15/17 17:57 Dose: Not Given Metoclopramide HCl (Reglan) 10 mg IVPUSH ONETIME ONE Stop: 08/15/17 10:29 Last Admin: 08/15/17 10:38 Dose: 10 mg Morphine Sulfate (Duramorph Pf) Confirm Administered Dose 10 mg .ROUTE .STK-MED ONE Stop: 08/15/17 10:44 Ondansetron HCl (Zofran) 4 mg IVPUSH ONETIME PRN PRN Reason: Nausea/Vomiting Ondansetron HCl (Zofran) 4 mg IVPUSH Q4H PRN PRN Reason: Nausea/Vomiting Oxytocin (Pitocin) Confirm Administered Dose 10 unit .ROUTE [email or web address] ONE Stop: 08/15/17 10:46 Sodium Chloride (Saline Flush) 10 ml FLUSH ASDIRECTED PRN PRN Reason: Keep Vein Open - Interaction Disposition, : Frederic in Room with Family Infant Interaction: Holding Infant Feeding: Attempted ; Nursed Fair/Poor Support Person: - Recovery Exam Fundal Tone: Firm Fundal Level: 1 Fingerbreadths Below Umbilicus Fundal Placement: Midline Lochia Amount: Scant Lochia Color: Rubra/Red Perineum Description: Intact, Minimal Bruising/Swelling Episiotomy/Laceration: None Bladder Status: Voiding Urinary Elimination: Voided - Exam General: Alert, Oriented, Cooperative Lungs: Clear to Auscultation, Normal Respiratory Effort Cardiovascular: Regular Rate, Regular Rhythm GI/Abdominal Exam: Soft, Distended, Tender (appropriate post op ) Extremities: Normal Inspection Skin: Warm, Dry, Intact Wound/Incisions: Healing Well, No Drainage - Problem List & Annotations (1) Spontaneous onset of labor SNOMED Code(s): 98311404 Code(s): NGU9920 - Status: Acute Current Visit: Yes (2) 40 weeks gestation of SNOMED Code(s): 15545593 Code(s): Z3A.40 - 40 WEEKS GESTATION OF Status: Acute Current Visit: Yes (3) Epilepsy SNOMED Code(s): 18881287 Code(s): G40.909 - EPILEPSY, UNSP, NOT INTRACTABLE, WITHOUT STATUS EPILEPTICUS Status: Acute Current Visit: Yes Qualifiers: Status epilepticus: without status epilepticus (4) GDM (gestational diabetes mellitus), class A1 SNOMED Code(s): 33213892 Code(s): O24.410 - GESTATIONAL DIABETES MELLITUS IN , DIET CONTROLLED Status: Acute Current Visit: Yes (5) Rh negative status during , third trimester, single gestation SNOMED Code(s): 425150674 Code(s): O09.893 - SUPERVISION OF OTHER HIGH RISK PREGNANCIES, THIRD TRIMESTER Status: Acute Current Visit: Yes (6) Non-reassuring status SNOMED Code(s): 964917892 Code(s): LFN5703 - Status: Acute Current Visit: Yes (7) Failure to progress in first stage of labor SNOMED Code(s): 670561743 Code(s): XUT4323 - Status: Acute Current Visit: Yes (8) S/P primary low transverse SNOMED Code(s): 663812115, 153894267, 001915551 Code(s): Z98.891 - HISTORY OF UTERINE SCAR FROM PREVIOUS SURGERY Status: Acute Current Visit: Yes - Problem List Review Problem List Initiated/Reviewed/Updated: Yes - My Orders Last 24 Hours: My Active Orders 08/15/17 10:28 Procedure Site Prep Instruct [RC] ASDIRECTED Verify Patient Consent Obtain [RC] PER UNIT ROUTINE 08/15/17 12:56 Activity as Tolerated [RC] .Routine Antiembolic Devices [RC] PER UNIT ROUTINE Communication Order [RC] PER UNIT ROUTINE Intake and Output [RC] Q4HR May Shower [RC] PER UNIT ROUTINE Notify Provider Intake and Out [RC] ASDIRECTED RT Incentive Spirometry [RC] Q2HWA Vital Signs [RC] Q1HR Acetaminophen/oxyCODONE [Percocet 325-5 MG] 2 tab PO Q4H PRN Docusate Sodium [Colace] 100 mg PO Q12H PRN Lanolin [Lansinoh HPA] See Dose Instructions TOP ASDIRECTED PRN Naloxone [Narcan] 0.1 mg IVPUSH SEECOMMENT PRN Ondansetron [Zofran] 4 mg IV Q8H PRN diphenhydrAMINE [Benadryl] 25 mg IVPUSH Q6H PRN Assess Lochia [WOMSER] Per Unit Routine Assess Uterine Involution [WOMSER] Per Unit Routine Breast Pump [WOMSER] Per Unit Routine Heat Therapy [OM.PC] Per Unit Routine Sequential Compression Device [OM.PC] Per Unit Routine 08/15/17 16:00 ANTIBODY IDENTIFICATION [BBK] Routine SCREEN [BBK] Routine PATIENT RETYPE [BBK] Routine RH IMMUNE GLOBULIN [BBK] Routine RHOGAM, [RHIG WORKUP, ] [BBK] Routine 08/15/17 18:00 Simethicone 80 mg PO QIDACANDBED 08/15/17 Lunch Regular Diet [DIET] 08/16/17 07:14 Blood Glucose Check, Bedside [RC] ONETIME 08/16/17 11:43 Urinary Catheter Removal [RC] Per Unit Routine 08/16/17 11:45 Ibuprofen [Motrin] 600 mg PO Q6H PRN - Assessment Assessment:: 27 y/o G1 now P1001 POD#1 from PLTCS at 40 5/7 wks after recurrent variable decelerations/NRFS and FTP past 7 cm. OR findings of triple nuchal and straight OP presentation - Plan Plan:: * Routine cares * CBC this AM * Fasting blood sugar this AM, 2hr GTT at check * Encourage breast feeding * Rhogam indicated, baby Rh positive * Discharge home in 1-2 days
--- NOTE | 2017-08-16 10:03 | PCM48HPAN ---
Post Anesthesia Note - EVALUATION WITHIN 48HRS OF ANESTHETIC Vital Signs in Normal Range: Yes Patient Participated in Evaluation: Yes Respiratory Function Stable: Yes Airway Patent: Yes Cardiovascular Function Stable: Yes Hydration Status Stable: Yes Pain Control Satisfactory: Yes Nausea and Vomiting Control Satisfactory: Yes Mental Status Recovered: Yes
[2017-08-16] MEDS: Acetaminophen/oxyCODONE 325-5 MG Tab PO PRN ×3 (11:53→19:18)
[2017-08-16] MEDS: Ibuprofen 600 MG Tab PO PRN (22:29)
[2017-08-17] MEDS: Acetaminophen/oxyCODONE 325-5 MG Tab PO PRN ×4 (01:12→21:32)
--- NOTE | 2017-08-17 07:03 | PCM.PNPP ---
- General Info Date of Service: 08/17/17 Functional Status: Reports: Pain Controlled, Tolerating Diet, Ambulating, Urinating - Review of Systems General: Reports: No Symptoms Pulmonary: Reports: No Symptoms Cardiovascular: Reports: No Symptoms Gastrointestinal: Reports: Abdominal Pain (manageable) Genitourinary: Reports: No Symptoms Musculoskeletal: Reports: No Symptoms - Patient Data Vital Signs - Most Recent: Last Vital Signs Temp 36.4 C 08/17/17 03:43 Pulse 75 08/17/17 03:20 Resp 16 08/17/17 03:20 BP 131/87 08/17/17 03:20 Pulse Ox 95 08/17/17 03:20 Weight - Most Recent: 73.255 kg I&O - Last 24 Hours: Intake & Output 08/16/17 08/17/17 08/17/17 22:59 06:59 14:59 Intake Total 0 Output Total 900 Balance -900 Lab Results - Last 24 Hours: Laboratory Results - last 24 hr 08/16/17 08/16/17 Range/Units 06:50 07:22 WBC 12.78 H (3.98-10.04) K/mm3 RBC 3.84 L (3.98-5.22) M/mm3 Hgb 12.1 (11.2-15.7) gm/L Hct 35.5 (34.1-44.9) % MCV 92.4 (79.4-94.8) fl MCH 31.5 (25.6-32.2) pg MCHC 34.1 (32.2-35.5) g/dl RDW Std Deviation 43.1 (36.4-46.3) fL Plt Count 137 L (182-369) K/mm3 MPV 11.4 (9.4-12.3) fl POC Glucose 55 L (70-105) mg/dL Med Orders - Current: Current Medications Diphenhydramine HCl (Benadryl) 25 mg IVPUSH Q6H PRN PRN Reason: Itching Diphenhydramine HCl (Benadryl) 25 mg IVPUSH Q6H PRN PRN Reason: Itching or Nausea Docusate Sodium (Colace) 100 mg PO Q12H PRN PRN Reason: Constipation Last Admin: 08/15/17 17:41 Dose: 100 mg Emollient Ointment (Lansinoh Hpa) 0 gm TOP ASDIRECTED PRN PRN Reason: Sore Nipples Last Admin: 08/16/17 14:31 Dose: 1 applic Ibuprofen (Motrin) 600 mg PO Q6H PRN PRN Reason: mild pain or fever Last Admin: 08/16/17 22:29 Dose: 600 mg Naloxone HCl (Narcan) 0.1 mg IVPUSH SEECOMMENT PRN PRN Reason: Respiratory Depression Ondansetron HCl (Zofran) 4 mg IV Q8H PRN PRN Reason: Nausea/Vomiting Oxycodone/Acetaminophen (Percocet 325-5 Mg) 2 tab PO Q4H PRN PRN Reason: Pain (moderate 4-6) Last Admin: 08/17/17 01:12 Dose: 1 tab Simethicone (Simethicone) 80 mg PO QIDACANDBED [facility] Last Admin: 08/16/17 22:07 Dose: 80 mg Discontinued Medications Acetaminophen (Tylenol) 650 mg PO Q6H PRN PRN Reason: Pain (Mild 1-3) and fever Bupivacaine HCl (Sensorcaine-Mpf 0.25%) 10 ml .ROUTE .STK-MED ONE Stop: 08/15/17 22:23 Cefazolin Sodium (Ancef) Confirm Administered Dose 2 gm .ROUTE .STK-MED ONE Stop: 08/15/17 10:44 Citric Acid/Sodium Citrate (Bicitra Solution) Confirm Administered Dose 30 ml .ROUTE .STK-MED ONE Stop: 08/15/17 10:26 Last Admin: 08/15/17 17:57 Dose: Not Given Citric Acid/Sodium Citrate (Bicitra Solution) 30 ml PO ONETIME ONE Stop: 08/15/17 10:29 Last Admin: 08/15/17 10:38 Dose: 30 ml Diphenhydramine HCl (Benadryl) 25 mg IVPUSH Q6H PRN PRN Reason: Pruritis Ephedrine Sulfate (Ephedrine Sulfate) 5 mg IVPUSH ASDIRECTED PRN PRN Reason: Hypotension Fentanyl (Sublimaze) 100 mcg EPIDUR Q3H PRN PRN Reason: Pain Last Admin: 08/14/17 22:39 Dose: 100 mcg Fentanyl (Sublimaze) 50 mcg IVPUSH Q5M PRN PRN Reason: PAIN Stop: 08/15/17 11:45 Fentanyl/Bupivacaine HCl (Fentanyl/Bupivacaine/Ns 2 Mcg-0.125% 100 Ml) 100 ml EPIDUR ASDIRECTED [facility] Last Admin: 08/15/17 06:18 Dose: 100 ml Ampicillin Sodium 2 gm/ Sodium (Chloride) 100 mls @ 200 mls/hr IV ONETIME ONE Stop: 08/14/17 20:08 Last Admin: 08/14/17 20:33 Dose: 200 mls/hr Ampicillin Sodium 1 gm/ Sodium (Chloride) 100 mls @ 200 mls/hr IV Q4H [facility] Last Admin: 08/15/17 17:58 Dose: Not Given Lactated Ringer's (Ringers, Lactated) 1,000 mls @ 100 mls/hr IV ASDIRECTED [facility] Last Admin: 08/15/17 00:22 Dose: 100 mls/hr Oxytocin/Lactated Ringer's (Pitocin In Lr 10 Units/1,000 Ml) 10 unit in 1,000 mls @ 100 mls/hr IV .CONTINUOUS [facility] Oxytocin/Lactated Ringer's (Pitocin In Lr 10 Units/1,000 Ml) 10 unit in 1,000 mls @ 12 mls/hr IV TITRATE [facility]; 2 MUNITS/MIN PRN Reason: Protocol Last Titration: 08/15/17 10:24 Dose: 0 munits/min, 0 mls/hr Sodium Chloride (Normal Saline) Confirm Administered Dose 1,000 mls @ as directed .ROUTE .STK-MED ONE Stop: 08/15/17 04:58 Last Admin: 08/15/17 05:00 Dose: Not Given Sodium Chloride (Normal Saline) 1,000 mls @ 200 mls/hr IV ASDIRECTED [facility] PRN Reason: Protocol Last Admin: 08/15/17 05:10 Dose: 200 mls/hr Cefazolin Sodium/Dextrose 2 gm (/ Premix) 50 mls @ 100 mls/hr IV ONETIME ONE Stop: 08/15/17 10:57 Last Admin: 08/15/17 17:59 Dose: Not Given Dextrose/Lactated Ringer's (Dextrose 5%-Lactated Ringers) 1,000 mls @ 125 mls/ hr IV ASDIRECTED [facility] Stop: 08/15/17 20:55 Last Admin: 08/15/17 13:02 Dose: 125 mls/hr Ketorolac Tromethamine (Toradol) Confirm Administered Dose 30 mg .ROUTE .STK- MED ONE Stop: 08/15/17 11:34 Ketorolac Tromethamine (Toradol) 30 mg IVPUSH Q6H [facility] Stop: 08/16/17 05:46 Last Admin: 08/16/17 05:26 Dose: 30 mg Lidocaine/Epinephrine (Xylocaine-Mpf 2%-Epi 1:200,000) Confirm Administered Dose 20 ml .ROUTE .STK-MED ONE Stop: 08/15/17 10:46 Meperidine HCl (Demerol) 12.5 mg IVPUSH ONETIME ONE Stop: 08/15/17 11:46 Last Admin: 08/15/17 14:53 Dose: Not Given Metoclopramide HCl (Reglan) Confirm Administered Dose 10 mg .ROUTE .STK-MED ONE Stop: 08/15/17 10:26 Last Admin: 08/15/17 17:57 Dose: Not Given Metoclopramide HCl (Reglan) 10 mg IVPUSH ONETIME ONE Stop: 08/15/17 10:29 Last Admin: 08/15/17 10:38 Dose: 10 mg Morphine Sulfate (Duramorph Pf) Confirm Administered Dose 10 mg .ROUTE .STK-MED ONE Stop: 08/15/17 10:44 Ondansetron HCl (Zofran) 4 mg IVPUSH ONETIME PRN PRN Reason: Nausea/Vomiting Ondansetron HCl (Zofran) 4 mg IVPUSH Q4H PRN PRN Reason: Nausea/Vomiting Oxytocin (Pitocin) Confirm Administered Dose 10 unit .ROUTE .STK-MED ONE Stop: 08/15/17 10:46 Sodium Chloride (Saline Flush) 10 ml FLUSH ASDIRECTED PRN PRN Reason: Keep Vein Open - Infant Interaction Disposition, : in Room with Family Interaction: Holding Infant Feeding: Attempted ; Nursed Fair/Poor, Difficulty with Latch -on Support Person: - Recovery Exam Fundal Tone: Firm Fundal Level: At Umbilicus Fundal Placement: Midline Lochia Amount: Small Lochia Color: Rubra/Red Perineum Description: Intact, Minimal Bruising/Swelling Episiotomy/Laceration: None Bladder Status: Voiding Urinary Elimination: Voided - Exam General: Alert, Oriented, Cooperative Lungs: Clear to Auscultation, Normal Respiratory Effort Cardiovascular: Regular Rate, Regular Rhythm GI/Abdominal Exam: Soft, Non-Tender, Distended (improved from yesterday) Extremities: Normal Inspection Skin: Warm, Dry, Intact Wound/Incisions: Healing Well, No Drainage - Problem List & Annotations (1) Spontaneous onset of labor SNOMED Code(s): 55201731 Code(s): JBO0797 - Status: Acute Current Visit: Yes (2) 40 weeks gestation of SNOMED Code(s): 21947421 Code(s): Z3A.40 - 40 WEEKS GESTATION OF Status: Acute Current Visit: Yes (3) Epilepsy SNOMED Code(s): 44218749 Code(s): G40.909 - EPILEPSY, UNSP, NOT INTRACTABLE, WITHOUT STATUS EPILEPTICUS Status: Acute Current Visit: Yes Qualifiers: Status epilepticus: without status epilepticus (4) GDM (gestational diabetes mellitus), class A1 SNOMED Code(s): 15808884 Code(s): O24.410 - GESTATIONAL DIABETES MELLITUS IN , DIET CONTROLLED Status: Acute Current Visit: Yes (5) Rh negative status during , third trimester, single gestation SNOMED Code(s): 894233874 Code(s): O09.893 - SUPERVISION OF OTHER HIGH RISK PREGNANCIES, THIRD TRIMESTER Status: Acute Current Visit: Yes (6) Non-reassuring status SNOMED Code(s): 209188942 Code(s): NUI8767 - Status: Acute Current Visit: Yes (7) Failure to progress in first stage of labor SNOMED Code(s): 016718651 Code(s): XFS6745 - Status: Acute Current Visit: Yes (8) S/P primary low transverse SNOMED Code(s): 843665172, 572202021, 924748663 Code(s): Z98.891 - HISTORY OF UTERINE SCAR FROM PREVIOUS SURGERY Status: Acute Current Visit: Yes - Problem List Review Problem List Initiated/Reviewed/Updated: Yes - My Orders Last 24 Hours: My Active Orders 08/16/17 11:45 Ibuprofen [Motrin] 600 mg PO Q6H PRN - Assessment Assessment:: 27 y/o G1 now P1001 POD#2 from PLT at 40 5/7 wks after recurrent variable decelerations/NRFS and FTP past 7 cm. OR findings of triple nuchal and straight OP presentation - Plan Plan:: * Routine cares * 2hr GTT at check * Encourage breast feeding * Rhogam given * Discharge home today vs tomorrow depending upon patient preference
[2017-08-17] MEDS: Ibuprofen 600 MG Tab PO PRN ×2 (07:42→15:35)
[2017-08-17] MEDS: Simethicone 80 MG Tab.Chew PO SCH ×4 (07:42→21:32)
[2017-08-17] MEDS: Docusate Sodium 100 MG Cap PO PRN (13:19)
[2017-08-18] MEDS: Ibuprofen 600 MG Tab PO PRN (01:07)
[2017-08-18] MEDS: Acetaminophen/oxyCODONE 325-5 MG Tab PO PRN ×2 (03:00→08:51)
[2017-08-18] MEDS: Simethicone 80 MG Tab.Chew PO SCH ×2 (06:30→12:08)
--- NOTE | 2017-08-18 06:36 | PCM.DCSUM1 ---
Discharge Summary - Discharge Data Discharge Date: 08/18/17 Discharge Disposition: Home, Self-Care 01 Condition: Good - Discharge Diagnosis/Problem(s) (1) Spontaneous onset of labor SNOMED Code(s): 46742650 ICD Code: [id number] - Status: Acute Current Visit: Yes (2) 40 weeks gestation of SNOMED Code(s): 86098092 ICD Code: Z3A.40 - 40 WEEKS GESTATION OF Status: Acute Current Visit: Yes (3) Epilepsy SNOMED Code(s): 44956716 ICD Code: G40.909 - EPILEPSY, UNSP, NOT INTRACTABLE, WITHOUT STATUS EPILEPTICUS Status: Acute Current Visit: Yes Qualifiers: Status epilepticus: without status epilepticus (4) GDM (gestational diabetes mellitus), class A1 SNOMED Code(s): 10252962 ICD Code: O24.410 - GESTATIONAL DIABETES MELLITUS IN , DIET CONTROLLED Status: Acute Current Visit: Yes (5) Rh negative status during , third trimester, single gestation SNOMED Code(s): 310695339 ICD Code: O09.893 - SUPERVISION OF OTHER HIGH RISK PREGNANCIES, THIRD TRIMESTER Status: Acute Current Visit: Yes (6) Non-reassuring status SNOMED Code(s): 357222749 ICD Code: FYB8938 - Status: Acute Current Visit: Yes (7) Failure to progress in first stage of labor SNOMED Code(s): 029142738 ICD Code: FQK7641 - Status: Acute Current Visit: Yes (8) S/P primary low transverse SNOMED Code(s): 012342002, 681610759, 773115051 ICD Code: Z98.891 - HISTORY OF UTERINE SCAR FROM PREVIOUS SURGERY Status: Acute Current Visit: Yes - Patient Summary/Data Operative Procedure(s) Performed: Primary Low Transverse Complications: None Consults: None Recommended Follow-up Testing/Procedures: Follow up in 1-2 weeks for incision check Hospital Course: 27 y/o at 40 4/7 wks who presented in labor. She had recurrent variable decelerations in her labor despite amnioinfusion. Also had labor slow/stop at 7 cm. Due to recurrent variables was not able to augment labor. She was thus taken for PLTCS. See operative note. she did well and was discharged home on POD#3 - Patient Instructions Diet: Regular Diet as Tolerated Activity: No Lifting Over 10 Pounds Activity, Other: Pelvic Rest for 6 weeks Driving: Do Not Drive (While taking narcotics ) Showering/Bathing: May Shower, No Tub Bathing/Swimming Wound/Incision Care: Keep Operative Site/Wound Site Clean and Dry Notify Provider of: Fever, Increased Pain, Swelling and Redness, Drainage, Nausea and/or Vomiting - Discharge Plan Prescriptions/Med Rec: Acetaminophen/oxyCODONE [Percocet 325-5 MG] 2 tab PO Q4H PRN #25 tablet PRN Reason: Pain Home Medications: Home Meds PNV95/Ferrous Fumarate/FA [ Tablet] 1 each PO DAILY 08/14/17 [History] levETIRAcetam [Keppra Xr] 2,500 mg PO DAILY 08/14/17 [History] Acetaminophen/oxyCODONE [Percocet 325-5 MG] 2 tab PO Q4H PRN #25 tablet [Rx] Docusate Sodium [Colace] 100 mg PO Q12H PRN cap 08/17/17 [Rx] Ibuprofen [IJD: Ibuprofen] 600 mg PO Q6H PRN tablet 08/17/17 [Rx] Referrals: Cora Shirley MD [Physician] - (1-2 weeks for incision check) - Discharge Summary/Plan Comment DC Time >30 min.: No - Patient Data Vitals - Most Recent: Last Vital Signs Temp 36.3 C 08/18/17 03:03 Pulse 73 08/18/17 03:03 Resp 16 08/18/17 03:03 BP 152/97 H 08/18/17 03:03 Pulse Ox 94 L 08/18/17 03:03 Weight - Most Recent: 73.255 kg I&O - Last 24 hours: Intake & Output 08/17/17 08/17/17 08/18/17 14:59 22:59 06:59 Intake Total 180 0 Balance 180 0 Med Orders - Current: Current Medications Diphenhydramine HCl (Benadryl) 25 mg IVPUSH Q6H PRN PRN Reason: Itching Diphenhydramine HCl (Benadryl) 25 mg IVPUSH Q6H PRN PRN Reason: Itching or Nausea Docusate Sodium (Colace) 100 mg PO Q12H PRN PRN Reason: Constipation Last Admin: 08/17/17 13:19 Dose: 100 mg Emollient Ointment (Lansinoh Hpa) 0 gm TOP ASDIRECTED PRN PRN Reason: Sore Nipples Last Admin: 08/16/17 14:31 Dose: 1 applic Ibuprofen (Motrin) 600 mg PO Q6H PRN PRN Reason: mild pain or fever Last Admin: 08/18/17 01:07 Dose: 600 mg Naloxone HCl (Narcan) 0.1 mg IVPUSH SEECOMMENT PRN PRN Reason: Respiratory Depression Ondansetron HCl (Zofran) 4 mg IV Q8H PRN PRN Reason: Nausea/Vomiting Oxycodone/Acetaminophen (Percocet 325-5 Mg) 2 tab PO Q4H PRN PRN Reason: Pain (moderate 4-6) Last Admin: 08/18/17 03:00 Dose: 1 tab Simethicone (Simethicone) 80 mg PO QIDACANDBED MILDRED Last Admin: 08/18/17 06:30 Dose: 80 mg Discontinued Medications Acetaminophen (Tylenol) 650 mg PO Q6H PRN PRN Reason: Pain (Mild 1-3) and fever Bupivacaine HCl (Sensorcaine-Mpf 0.25%) 10 ml .ROUTE .STK-MED ONE Stop: 08/15/17 22:23 Cefazolin Sodium (Ancef) Confirm Administered Dose 2 gm .ROUTE .STK-MED ONE Stop: 08/15/17 10:44 Citric Acid/Sodium Citrate (Bicitra Solution) Confirm Administered Dose 30 ml .ROUTE .STK-MED ONE Stop: 08/15/17 10:26 Last Admin: 08/15/17 17:57 Dose: Not Given Citric Acid/Sodium Citrate (Bicitra Solution) 30 ml PO ONETIME ONE Stop: 08/15/17 10:29 Last Admin: 08/15/17 10:38 Dose: 30 ml Diphenhydramine HCl (Benadryl) 25 mg IVPUSH Q6H PRN PRN Reason: Pruritis Ephedrine Sulfate (Ephedrine Sulfate) 5 mg IVPUSH ASDIRECTED PRN PRN Reason: Hypotension Fentanyl (Sublimaze) 100 mcg EPIDUR Q3H PRN PRN Reason: Pain Last Admin: 08/14/17 22:39 Dose: 100 mcg Fentanyl (Sublimaze) 50 mcg IVPUSH Q5M PRN PRN Reason: PAIN Stop: 08/15/17 11:45 Fentanyl/Bupivacaine HCl (Fentanyl/Bupivacaine/Ns 2 Mcg-0.125% 100 Ml) 100 ml EPIDUR ASDIRECTED MILDRED Last Admin: 08/15/17 06:18 Dose: 100 ml Ampicillin Sodium 2 gm/ Sodium (Chloride) 100 mls @ 200 mls/hr IV ONETIME ONE Stop: 08/14/17 20:08 Last Admin: 08/14/17 20:33 Dose: 200 mls/hr Ampicillin Sodium 1 gm/ Sodium (Chloride) 100 mls @ 200 mls/hr IV Q4H MILDRED Last Admin: 08/15/17 17:58 Dose: Not Given Lactated Ringer's (Ringers, Lactated) 1,000 mls @ 100 mls/hr IV ASDIRECTED MILDRED Last Admin: 08/15/17 00:22 Dose: 100 mls/hr Oxytocin/Lactated Ringer's (Pitocin In Lr 10 Units/1,000 Ml) 10 unit in 1,000 mls @ 100 mls/hr IV .CONTINUOUS MILDRED Oxytocin/Lactated Ringer's (Pitocin In Lr 10 Units/1,000 Ml) 10 unit in 1,000 mls @ 12 mls/hr IV TITRATE MILDRED; 2 MUNITS/MIN PRN Reason: Protocol Last Titration: 08/15/17 10:24 Dose: 0 munits/min, 0 mls/hr Sodium Chloride (Normal Saline) Confirm Administered Dose 1,000 mls @ as directed .ROUTE .STK-MED ONE Stop: 08/15/17 04:58 Last Admin: 08/15/17 05:00 Dose: Not Given Sodium Chloride (Normal Saline) 1,000 mls @ 200 mls/hr IV ASDIRECTED MILDRED PRN Reason: Protocol Last Admin: 08/15/17 05:10 Dose: 200 mls/hr Cefazolin Sodium/Dextrose 2 gm (/ Premix) 50 mls @ 100 mls/hr IV ONETIME ONE Stop: 08/15/17 10:57 Last Admin: 08/15/17 17:59 Dose: Not Given Dextrose/Lactated Ringer's (Dextrose 5%-Lactated Ringers) 1,000 mls @ 125 mls/ hr IV ASDIRECTED MILDRED Stop: 08/15/17 20:55 Last Admin: 08/15/17 13:02 Dose: 125 mls/hr Ketorolac Tromethamine (Toradol) Confirm Administered Dose 30 mg .ROUTE .STK- MED ONE Stop: 08/15/17 11:34 Ketorolac Tromethamine (Toradol) 30 mg IVPUSH Q6H [facility] Stop: 08/16/17 05:46 Last Admin: 08/16/17 05:26 Dose: 30 mg Lidocaine/Epinephrine (Xylocaine-Mpf 2%-Epi 1:200,000) Confirm Administered Dose 20 ml .ROUTE .STK-MED ONE Stop: 08/15/17 10:46 Meperidine HCl (Demerol) 12.5 mg IVPUSH ONETIME ONE Stop: 08/15/17 11:46 Last Admin: 08/15/17 14:53 Dose: Not Given Metoclopramide HCl (Reglan) Confirm Administered Dose 10 mg .ROUTE .STK-MED ONE Stop: 08/15/17 10:26 Last Admin: 08/15/17 17:57 Dose: Not Given Metoclopramide HCl (Reglan) 10 mg IVPUSH ONETIME ONE Stop: 08/15/17 10:29 Last Admin: 08/15/17 10:38 Dose: 10 mg Morphine Sulfate (Duramorph Pf) Confirm Administered Dose 10 mg .ROUTE .STK-MED ONE Stop: 08/15/17 10:44 Ondansetron HCl (Zofran) 4 mg IVPUSH ONETIME PRN PRN Reason: Nausea/Vomiting Ondansetron HCl (Zofran) 4 mg IVPUSH Q4H PRN PRN Reason: Nausea/Vomiting Oxytocin (Pitocin) Confirm Administered Dose 10 unit .ROUTE .STK-MED ONE Stop: 08/15/17 10:46 Sodium Chloride (Saline Flush) 10 ml FLUSH ASDIRECTED PRN PRN Reason: Keep Vein Open *Q Meaningful Use (DIS) - VTE *Q VTE Criteria *Q: - Stroke *Q Stroke Criteria *Q: - AMI *Q AMI Criteria *Q:
[2017-08-18] MEDS: Docusate Sodium 100 MG Cap PO PRN (08:48)
== END 2017-08-18 11:55 | disposition home or self-care (01) | DRG 540 ==
LOC: JD.OBCHECK 18:20 → JD.OB 18:26 → JD.OBCHECK 19:38 → JD.OB 19:39 → UNDOADMOB 19:39 → JD.OB 19:39 → JD.OBCHECK 19:39 → JD.OB 08-15 11:02 → OBSVTOIN 08-15 11:02
PROVIDERS: ADMIT Obstetrics & Gynecology; ATTEND Obstetrics & Gynecology
PROC: 10D00Z1 Extraction of Products of Conception, Low, Open Approach (ICD-10-PCS; principal; 2017-08-15)
PROC: 3E0E7GC Introduction of Other Therapeutic Substance into Products of Conception, Via Natural or Artificial Opening (ICD-10-PCS; 2017-08-15)
PROC: 10907ZC Drainage of Amniotic Fluid, Therapeutic from Products of Conception, Via Natural or Artificial Opening (ICD-10-PCS; 2017-08-15)
PROC: 00HU33Z Insertion of Infusion Device into Spinal Canal, Percutaneous Approach (ICD-10-PCS; 2017-08-15)
PROC: 3E0R3BZ Introduction of Anesthetic Agent into Spinal Canal, Percutaneous Approach (ICD-10-PCS; 2017-08-15)
DX: O48.0 Post-term pregnancy (principal); Z3A.41 41 weeks gestation of pregnancy; Z37.0 Single live birth; O24.420 Gestational diabetes mellitus in childbirth, diet controlled; O99.824 Streptococcus B carrier state complicating childbirth; O75.89 Other specified complications of labor and delivery; G40.909 Epilepsy, unspecified, not intractable, without status epilepticus; O69.81X0 Labor and delivery complicated by cord around neck, without compression, not applicable or unspecified; O32.8XX0 Maternal care for other malpresentation of fetus, not applicable or unspecified; O76 Abnormality in fetal heart rate and rhythm complicating labor and delivery; O62.0 Primary inadequate contractions; O42.02 Full-term premature rupture of membranes, onset of labor within 24 hours of rupture
CPT/HCPCS: 01967; 01968; 36415; 51702; 82565; 82570; 82962; 83615; 84156; 84450; 84460; 84520; 84550; 85025; 85027; 85461; 86850; 86870; 86900; 86901; A9270-GY; J0290; J0690; J1885; J2270; J2590; J2765; J2790; J3010; J7030; J7040; J7042; J7120

== ENCOUNTER 2019-06-20 05:30 | Inpatient (IN) | payer BC ==
[~2019-06-20 05:30] MED LIST: Citric Acid/Sodium Citrate Solution 30 ML Cup PO ONE; Metoclopramide 10 MG/2 ML SDV IVPUSH ONE; Sodium Chloride 0.9% 10 ML Syringe FLUSH PRN
[2019-06-20] MEDS ORDERED: Metoclopramide 10 MG/2 ML SDV IVPUSH ONE (06:00)
[2019-06-20] MEDS ORDERED: Citric Acid/Sodium Citrate Solution 30 ML Cup PO ONE (06:00)
[2019-06-20] MEDS: Lactated Ringers 1,000 ML IV SCH ×2 (06:15→06:46)
[2019-06-20] MEDS ORDERED: Oxytocin/Lactated Ringers 10 UNIT/1,000 ML BAG IV SCH (07:00)
[2019-06-20] MEDS ORDERED: ceFAZolin 2 GM in Premix Bag 1 BAG IV ONE (07:00)
--- NOTE | 2019-06-20 07:13 | PCM.OPNOTE ---
- General Post-Op/Procedure Note Date of Surgery/Procedure: 06/20/19 Operative Procedure(s): Repeat low transverse Findings: Minimal amount of scar tissue between the rectus and fascia. Minimal scarring between the uterus and lower uterine segment. Baby boy in a vertex presentation. APGARS of 9 & 9 . Weight of 7 lbs 8 oz. Grossly normal appearance of the uterus, fallopian tubes, and ovaries. Pre Op Diagnosis: 39 weeks. Hx of . 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 Fluid Replacement, Intraop: 2,000 Output, Urine Amount: 300 EBL in mLs: 500 Complications: None Condition: Good Free Text/Narrative:: The risks, benefits, indications, potential complications, and alternatives were explained to the patient and informed consent obtained. After induction of anesthesia, the patient was placed in a supine position and then draped and prepped in the usual sterile manner. A Pfannenstiel incision was made and carried down through the subcutaneous tissue to the fascia. Fascial incision was made and extended transversely. The fascia was from the underlying rectus tissue superiorly and inferiorly. The peritoneum was identified and entered. Peritoneal incision was extended longitudinally. The utero-vesical peritoneal reflection was incised transversely and the bladder flap was bluntly freed from the lower uterine segment. A low transverse uterine incision was made sharply with a scalpel and extended bluntly in a cephalocaudad direction. A baby boy was delivered from a vetex presentation with APGARS as above. After the umbilical cord was clamped and cut cord blood was obtained for evaluation. The placenta was removed intact and appeared normal. The uterus was exteriorized and cleared of clots. The uterine outline, tubes and ovaries appeared normal. The uterine incision was closed with running locked sutures of 0 Vicryl. Hemostasis was obtained with a second imbricating layer of 0 vicryl. The uterus was then placed back into the abdomen. The infracolic gutters were cleared of blood clots. The fascia was then reapproximated with running sutures of 0 Vicryl. The subcutaneous tissue was irrigated with sterile warm normal saline, hemostasis obtained with cautery. This layer was also closed with a running 0 vicryl. The skin was reapproximated with running Subcuticular 4-0 monocryl sutures. Instrument, sponge, and needle counts were correct prior the abdominal closure and at the conclusion of the case.
[2019-06-20] MEDS ORDERED: ceFAZolin 1 GM Vial ONE (07:17)
[2019-06-20] MEDS ORDERED: Oxytocin 10 Units/1 ML SDV ONE (07:17)
[2019-06-20] MEDS ORDERED: Ketorolac 30 MG/ML SDV ONE (07:17)
[2019-06-20] MEDS ORDERED: Morphine PF 10 MG/10 ML SDV ONE (07:17)
[2019-06-20] MEDS ORDERED: Lactated Ringers 2,000 ML ONE (07:17)
[2019-06-20] MEDS ORDERED: Ondansetron 4 MG/2 ML SDV ONE (07:17)
[2019-06-20] MEDS ORDERED: Ondansetron 4 MG/2 ML SDV IVPUSH PRN (08:18)
[2019-06-20] MEDS ORDERED: ePHEDrine 50 MG/ML SDV IVPUSH PRN (08:18)
[2019-06-20] MEDS ORDERED: diphenhydrAMINE 50 MG/ML SDV IVPUSH PRN ×2 (08:18→10:11)
[2019-06-20] MEDS ORDERED: fentaNYL 100 MCG/2 ML SDV IVPUSH PRN (08:18)
[2019-06-20] MEDS ORDERED: Phenylephrine/Normal Saline 100 MCG/ML 10 ML Syringe ONE ×2 (08:25)
--- NOTE | 2019-06-20 08:44 | PCM.POSTAN ---
POST ANESTHESIA ASSESSMENT - MENTAL STATUS Mental Status: Alert, Oriented - VITAL SIGNS Vital Signs: Last Vital Signs 0839 97.9F 119/76 88 16 97% - RESPIRATORY Respiratory Status: Respiratory Rate WNL, Airway Patent, O2 Saturation Stable, Supplemental Oxygen - CARDIOVASCULAR CV Status: Pulse Rate WNL, Blood Pressure Stable - GASTROINTESTINAL GI Status: No Symptoms - PAIN Pain Score: 0 - POST OP HYDRATION Hydration Status: Adequate & Stable
--- NOTE | 2019-06-20 08:47 | PCM.PREANE ---
Preanesthetic Assessment - Anesthesia/Transfusion/Family Hx Anesthesia History: Prior Anesthesia Without Reaction Family History of Anesthesia Reaction: No Transfusion History: No Prior Transfusion(s) - Review of Systems General: No Symptoms Pulmonary: No Symptoms Cardiovascular: No Symptoms Gastrointestinal: Other (GERD) Neurological: Seizure (Seizure Disorder controlled with medication. No seizure for 14 years. ) Other: Reports: Diabetes - Physical Assessment NPO Status Date: 06/19/19 NPO Status Time: 18:00 Vital Signs: Last Vital Signs Temp 37.1 C 06/20/19 05:44 Pulse 104 H 06/20/19 05:56 Resp 16 06/20/19 05:56 BP 124/84 06/20/19 05:56 Pulse Ox 99 06/20/19 05:56 Height: 1.55 m Weight: 81.193 kg ASA Class: 2 Mental Status: Alert & Oriented x3 Dentition: Reports: Normal Dentition Thyro-Mental Finger Breadths: 3 Mouth Opening Finger Breadths: 3 ROM/Head Extension: Full Lungs: Clear to Auscultation, Normal Respiratory Effort Cardiovascular: Regular Rate, Regular Rhythm - Lab Values: Laboratory Last Values WBC 7.76 K/mm3 (3.98-10.04) 06/20/19 05:50 RBC 4.58 M/mm3 (3.98-5.22) 06/20/19 05:50 Hgb 12.7 gm/L (11.2-15.7) 06/20/19 05:50 Hct 37.8 % (34.1-44.9) 06/20/19 05:50 MCV 82.5 fl (79.4-94.8) D 06/20/19 05:50 MCH 27.7 pg (25.6-32.2) 06/20/19 05:50 MCHC 33.6 g/dl (32.2-35.5) 06/20/19 05:50 RDW Std Deviation 45.6 fL (36.4-46.3) 06/20/19 05:50 Plt Count 185 K/mm3 (182-369) 06/20/19 05:50 MPV 11.3 fl (9.4-12.3) 06/20/19 05:50 Neut % (Auto) 69.1 % (34.0-71.1) 06/20/19 05:50 Lymph % (Auto) 22.0 % (19.3-51.7) 06/20/19 05:50 [place] % (Auto) 8.0 % (4.7-12.5) 06/20/19 05:50 Eos % (Auto) 0.8 (0.7-5.8) 06/20/19 05:50 Baso % (Auto) 0.0 % (0.1-1.2) L 06/20/19 05:50 Neut # (Auto) 5.36 K/mm3 (1.56-6.13) 06/20/19 05:50 Lymph # (Auto) 1.71 K/mm3 (1.18-3.74) 06/20/19 05:50 [place] # (Auto) 0.62 K/mm3 (0.24-0.36) H 06/20/19 05:50 Eos # (Auto) 0.06 K/mm3 (0.04-0.36) 06/20/19 05:50 Baso # (Auto) 0.00 K/mm3 (0.01-0.08) L 06/20/19 05:50 POC Glucose 79 mg/dL (70-105) 06/20/19 07:07 Blood Type A NEGATIVE 06/20/19 05:50 Gel Antibody Screen Positive 06/20/19 05:50 - Allergies Allergies/Adverse Reactions: Allergies Allergy/AdvReac Type Severity Reaction Status Date / Time hydrocodone Allergy Rash Verified 06/20/19 05:45 - Blood Blood Available: Yes Product(s) Available: PRBC - Anesthesia Plan Pre-Op Medication Ordered: Antacids - Acknowledgements Anesthesia Type Planned: Spinal Pt an Appropriate Candidate for the Planned Anesthesia: Yes Alternatives and Risks of Anesthesia Discussed w Pt/Guardian: Yes Pt/Guardian Understands and Agrees with Anesthesia Plan: Yes PreAnesthesia Questionnaire HEENT History: Reports: None Cardiovascular History: Reports: None Respiratory History: Reports: None Gastrointestinal History: Reports: None Genitourinary History: Reports: None 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 Hematologic History: Reports: None Immunologic History: Reports: None Oncologic (Cancer) History: Reports: None Dermatologic History: Reports: None - Infectious Disease History Infectious Disease History: Reports: Other (See Below) Other Infectious Disease History: GBS + - Past Surgical History Head Surgeries/Procedures: Reports: None HEENT Surgical History: Reports: Oral Surgery Cardiovascular Surgical History: Reports: None Respiratory Surgical History: Reports: None GI Surgical History: Reports: None Female Surgical History: Reports: Section Endocrine Surgical History: Reports: None Musculoskeletal Surgical History: Reports: None Oncologic Surgical History: Reports: None Dermatological Surgical History: Reports: None - SUBSTANCE USE Smoking Status *Q: Never Smoker Second Hand Smoke Exposure: No Recreational Drug Use History: No - HOME MEDS Home Medications: Home Meds PNV95/Ferrous Fumarate/FA [ Tablet] 1 each PO DAILY 08/14/17 [History] levETIRAcetam [Keppra Xr] 2,500 mg PO DAILY 08/14/17 [History] - CURRENT (IN HOUSE) MEDS Current Meds: Current Medications Diphenhydramine HCl (Benadryl) 25 mg IVPUSH Q6H PRN PRN Reason: Pruritis Ephedrine Sulfate (Ephedrine Sulfate) 5 mg IVPUSH ASDIRECTED PRN PRN Reason: Hypotension Fentanyl (Sublimaze) 50 mcg IVPUSH Q5M PRN PRN Reason: Pain Lactated Ringer's (Ringers, Lactated) 1,000 mls @ 125 mls/hr IV ASDIRECTED [facility] Last Admin: 06/20/19 06:46 Dose: 125 mls/hr Oxytocin/Lactated Ringer's (Pitocin In Lr 10 Units/1,000 Ml) 10 unit in 1,000 mls @ 100 mls/hr IV ASDIRECTED [facility]; Protocol Non-Formulary Medication (Levetiracetam [Keppra Xr]) 2,500 mg PO DAILY [facility] Ondansetron HCl (Zofran) 4 mg IVPUSH ONETIME PRN PRN Reason: Nausea/Vomiting Sodium Chloride (Saline Flush) 10 ml FLUSH ASDIRECTED PRN PRN Reason: Keep Vein Open Discontinued Medications Cefazolin Sodium (Ancef) Confirm Administered Dose 2 gm .ROUTE .STK-MED ONE Stop: 06/20/19 07:18 Citric Acid/Sodium Citrate (Bicitra Solution) 30 ml PO ONETIME ONE Stop: 06/20/19 01:04 Last Admin: 06/20/19 07:08 Dose: 30 ml Citric Acid/Sodium Citrate (Bicitra Solution) 30 ml PO ONETIME ONE Stop: 06/20/19 06:01 Last Admin: 06/20/19 07:08 Dose: Not Given Cefazolin Sodium/Dextrose 2 gm (/ Premix) 50 mls @ 100 mls/hr IV ONETIME ONE Stop: 06/20/19 07:29 Lactated Ringer's (Ringers, Lactated) Confirm Administered Dose 2,000 mls @ as directed .ROUTE .STK-MED ONE Stop: 06/20/19 07:18 Ketorolac Tromethamine (Toradol) Confirm Administered Dose 30 mg .ROUTE .ST- MED ONE Stop: 06/20/19 07:18 Metoclopramide HCl (Reglan) 10 mg IVPUSH ONETIME ONE Stop: 06/20/19 01:04 Last Admin: 06/20/19 07:08 Dose: 10 mg Metoclopramide HCl (Reglan) 10 mg IVPUSH ONETIME ONE Stop: 06/20/19 06:01 Last Admin: 06/20/19 07:09 Dose: Not Given Morphine Sulfate (Duramorph Pf) Confirm Administered Dose 10 mg .ROUTE .STK-MED ONE Stop: 06/20/19 07:18 Ondansetron HCl (Zofran) Confirm Administered Dose 4 mg .ROUTE .STK-MED ONE Stop: 06/20/19 07:18 Oxytocin (Pitocin) Confirm Administered Dose 20 unit .ROUTE .STK-MED ONE Stop: 06/20/19 07:18 Phenylephrine HCl (Phenylephrine In Ns 100 Mcg/Ml) Confirm Administered Dose 1 mg .ROUTE .STK-MED ONE Stop: 06/20/19 08:26 Phenylephrine HCl (Phenylephrine In Ns 100 Mcg/Ml) Confirm Administered Dose 1 mg .ROUTE .STK-MED ONE Stop: 06/20/19 08:26
[2019-06-20] MEDS ORDERED: Lanolin 100% Cream 7 GM Tube TOP PRN (10:11)
[2019-06-20] MEDS ORDERED: Dextrose 5%-Lactated Ringers 1,000 ML IV SCH (10:11)
[2019-06-20] MEDS ORDERED: Ondansetron 4 MG/2 ML SDV IV PRN (10:11)
[2019-06-20] MEDS: Ketorolac 30 MG/ML SDV IVPUSH SCH ×2 (14:28→20:49)
[2019-06-20] MEDS: LEVETIRACETAM PO SCH (15:41)
[2019-06-21] MEDS: Ketorolac 30 MG/ML SDV IVPUSH SCH (03:33)
--- NOTE | 2019-06-21 06:07 | PCM.PNPP ---
- General Info Date of Service: 06/21/19 Functional Status: Reports: Pain Controlled, Tolerating Diet, Ambulating - Review of Systems General: Reports: No Symptoms Pulmonary: Reports: No Symptoms Cardiovascular: Reports: No Symptoms Gastrointestinal: Reports: Abdominal Pain (managed with medications ) Musculoskeletal: Reports: No Symptoms Neurological: Reports: No Symptoms - Patient Data Vital Signs - Most Recent: Last Vital Signs Temp 36.9 C 06/20/19 20:22 Pulse 82 06/20/19 20:22 Resp 14 06/20/19 20:22 BP 124/73 06/20/19 20:22 Pulse Ox 97 06/20/19 20:22 Weight - Most Recent: 81.193 kg I&O - Last 24 Hours: Intake & Output 06/20/19 06/20/19 06/21/19 14:59 22:59 06:59 Intake Total 3430 182 Output Total 036 1192 450 Balance 8654 -9086 -417 Lab Results - Last 24 Hours: Laboratory Results - last 24 hr 06/20/19 06/20/19 06/20/19 Range/Units 05:50 05:50 05:50 WBC 7.76 (3.98-10.04) K/mm3 RBC 4.58 (3.98-5.22) M/mm3 Hgb 12.7 (11.2-15.7) gm/L Hct 37.8 (34.1-44.9) % MCV 82.5 D (79.4-94.8) fl MCH 27.7 (25.6-32.2) pg MCHC 33.6 (32.2-35.5) g/dl RDW Std Deviation 45.6 (36.4-46.3) fL Plt Count 185 (182-369) K/mm3 MPV 11.3 (9.4-12.3) fl Neut % (Auto) 69.1 (34.0-71.1) % Lymph % (Auto) 22.0 (19.3-51.7) % Boundary % (Auto) 8.0 (4.7-12.5) % Eos % (Auto) 0.8 (0.7-5.8) Baso % (Auto) 0.0 L (0.1-1.2) % Neut # (Auto) 5.36 (1.56-6.13) K/mm3 Lymph # (Auto) 1.71 (1.18-3.74) K/mm3 Boundary # (Auto) 0.62 H (0.24-0.36) K/mm3 Eos # (Auto) 0.06 (0.04-0.36) K/mm3 Baso # (Auto) 0.00 L (0.01-0.08) K/mm3 POC Glucose (70-105) mg/dL RPR Non-reactive (NONREACTIVE) Blood Type A NEGATIVE Gel Antibody Screen Positive Screen RhIG Candidate? Rhogam Indicated 06/20/19 06/20/19 Range/Units 07:07 12:17 WBC (3.98-10.04) K/mm3 RBC (3.98-5.22) M/mm3 Hgb (11.2-15.7) gm/L Hct (34.1-44.9) % MCV (79.4-94.8) fl MCH (25.6-32.2) pg MCHC (32.2-35.5) g/dl RDW Std Deviation (36.4-46.3) fL Plt Count (182-369) K/mm3 MPV (9.4-12.3) fl Neut % (Auto) (34.0-71.1) % Lymph % (Auto) (19.3-51.7) % Boundary % (Auto) (4.7-12.5) % Eos % (Auto) (0.7-5.8) Baso % (Auto) (0.1-1.2) % Neut # (Auto) (1.56-6.13) K/mm3 Lymph # (Auto) (1.18-3.74) K/mm3 Boundary # (Auto) (0.24-0.36) K/mm3 Eos # (Auto) (0.04-0.36) K/mm3 Baso # (Auto) (0.01-0.08) K/mm3 POC Glucose 79 (70-105) mg/dL RPR (NONREACTIVE) Blood Type Cancelled Gel Antibody Screen Cancelled Screen 1 ros/5 flds - neg RhIG Candidate? Yes Rhogam Indicated Cancelled Med Orders - Current: Current Medications Diphenhydramine HCl (Benadryl) 25 mg IVPUSH Q6H PRN PRN Reason: Pruritis Diphenhydramine HCl (Benadryl) 25 mg IVPUSH Q6H PRN PRN Reason: Itching or Nausea Docusate Sodium (Colace) 100 mg PO Q12H PRN PRN Reason: Constipation Emollient Ointment (Lansinoh Hpa) 0 gm TOP ASDIRECTED PRN PRN Reason: Sore Nipples Ephedrine Sulfate (Ephedrine Sulfate) 5 mg IVPUSH ASDIRECTED PRN PRN Reason: Hypotension Fentanyl (Sublimaze) 50 mcg IVPUSH Q5M PRN PRN Reason: Pain Ibuprofen (Motrin) 600 mg PO Q6H PRN PRN Reason: mild pain or fever Ondansetron HCl (Zofran) 4 mg IVPUSH ONETIME PRN PRN Reason: Nausea/Vomiting Ondansetron HCl (Zofran) 4 mg IV Q8H PRN PRN Reason: Nausea/Vomiting Oxycodone/Acetaminophen (Percocet 325-5 Mg) 1 - 2 tab PO Q4H PRN PRN Reason: Pain (moderate 4-6) Levetiracetam [ (Keppra Xr] 2,500 Mg) 0 each PO DAILY [facility] Last Admin: 06/20/19 15:41 Dose: Not Given Discontinued Medications Cefazolin Sodium (Ancef) Confirm Administered Dose 2 gm .ROUTE .STK-MED ONE Stop: 06/20/19 07:18 Citric Acid/Sodium Citrate (Bicitra Solution) 30 ml PO ONETIME ONE Stop: 06/20/19 01:04 Last Admin: 06/20/19 07:08 Dose: 30 ml Citric Acid/Sodium Citrate (Bicitra Solution) 30 ml PO ONETIME ONE Stop: 06/20/19 06:01 Last Admin: 06/20/19 07:08 Dose: Not Given Cefazolin Sodium/Dextrose 2 gm (/ Premix) 50 mls @ 100 mls/hr IV ONETIME ONE Stop: 06/20/19 07:29 Last Admin: 06/20/19 15:42 Dose: Not Given Lactated Ringer's (Ringers, Lactated) 1,000 mls @ 125 mls/hr IV ASDIRECTED [facility] Last Admin: 06/20/19 06:46 Dose: 125 mls/hr Oxytocin/Lactated Ringer's (Pitocin In Lr 10 Units/1,000 Ml) 10 unit in 1,000 mls @ 100 mls/hr IV ASDIRECTED [facility]; Protocol Lactated Ringer's (Ringers, Lactated) Confirm Administered Dose 2,000 mls @ as directed .ROUTE .STK-MED ONE Stop: 06/20/19 07:18 Dextrose/Lactated Ringer's (Dextrose 5%-Lactated Ringers) 1,000 mls @ 125 mls/ hr IV ASDIRECTED [facility] Stop: 06/20/19 18:10 Last Infusion: 06/20/19 14:27 Dose: Infused Ketorolac Tromethamine (Toradol) Confirm Administered Dose 30 mg .ROUTE .STK- MED ONE Stop: 06/20/19 07:18 Ketorolac Tromethamine (Toradol) 30 mg IVPUSH Q6H [facility] Stop: 06/21/19 02:31 Last Admin: 06/21/19 03:33 Dose: 30 mg Metoclopramide HCl (Reglan) 10 mg IVPUSH ONETIME ONE Stop: 06/20/19 01:04 Last Admin: 06/20/19 07:08 Dose: 10 mg Metoclopramide HCl (Reglan) 10 mg IVPUSH ONETIME ONE Stop: 06/20/19 06:01 Last Admin: 06/20/19 07:09 Dose: Not Given Morphine Sulfate (Duramorph Pf) Confirm Administered Dose 10 mg .ROUTE .STK-MED ONE Stop: 06/20/19 07:18 Ondansetron HCl (Zofran) Confirm Administered Dose 4 mg .ROUTE .STK-MED ONE Stop: 06/20/19 07:18 Oxytocin (Pitocin) Confirm Administered Dose 20 unit .ROUTE .STK-MED ONE Stop: 06/20/19 07:18 Phenylephrine HCl (Phenylephrine In Ns 100 Mcg/Ml) Confirm Administered Dose 1 mg .ROUTE .STK-MED ONE Stop: 06/20/19 08:26 Phenylephrine HCl (Phenylephrine In Ns 100 Mcg/Ml) Confirm Administered Dose 1 mg .ROUTE .STK-MED ONE Stop: 06/20/19 08:26 Sodium Chloride (Saline Flush) 10 ml FLUSH ASDIRECTED PRN PRN Reason: Keep Vein Open - Infant Interaction Disposition, : [place] in Room with Family Infant Interaction: Holding Feeding: Attempted ; Nursed Fair/Poor Support Person: - Recovery Exam Fundal Tone: Firm Fundal Level: At Umbilicus Fundal Placement: Midline Lochia Amount: Small Lochia Color: Rubra/Red Perineum Description: Intact, Minimal Bruising/Swelling Episiotomy/Laceration: None - Exam General: Alert, Oriented, Cooperative Lungs: Clear to Auscultation, Normal Respiratory Effort Cardiovascular: Regular Rate, Regular Rhythm GI/Abdominal Exam: Soft, Tender (appropriate post op) Extremities: Normal Inspection Skin: Warm, Dry, Intact Wound/Incisions: Healing Well, No Drainage - Problem List & Annotations (1) 39 weeks gestation of SNOMED Code(s): 43337542 Code(s): Z3A.39 - 39 WEEKS GESTATION OF Status: Acute Current Visit: Yes (2) S/P repeat low transverse SNOMED Code(s): 264054090, 02009914, 943755821, 903969455, 030959979 Code(s): Z98.891 - HISTORY OF UTERINE SCAR FROM PREVIOUS SURGERY Status: Acute Current Visit: Yes (3) GDM (gestational diabetes mellitus), class A1 SNOMED Code(s): 25812625 Code(s): O24.410 - GESTATIONAL DIABETES MELLITUS IN , DIET CONTROLLED Status: Acute Current Visit: No (4) Rh negative status during , third trimester, single gestation SNOMED Code(s): 402791398 Code(s): O09.893 - SUPERVISION OF OTHER HIGH RISK PREGNANCIES, THIRD TRIMESTER Status: Acute Current Visit: No - Problem List Review Problem List Initiated/Reviewed/Updated: Yes - My Orders Last 24 Hours: My Active Orders 06/20/19 05:50 ANTIBODY IDENTIFICATION [BBK] Routine TYPE AND SCREEN [BBK] Routine 06/20/19 09:00 Patient's Own Medication [Ptom] 0 each PO DAILY 06/20/19 10:11 Activity as Tolerated [RC] .Routine Antiembolic Devices [RC] PER UNIT ROUTINE Communication Order [RC] PER UNIT ROUTINE Communication Order [RC] PER UNIT ROUTINE Intake and Output [RC] Q4HR May Shower [RC] PER UNIT ROUTINE Notify Provider Intake and Out [RC] ASDIRECTED RT Incentive Spirometry [RC] Q2HWA Vital Signs [RC] Q4HR Acetaminophen/oxyCODONE [Percocet 325-5 MG] 1 - 2 tab PO Q4H PRN Docusate Sodium [Colace] 100 mg PO Q12H PRN Lanolin [Lansinoh HPA] See Dose Instructions TOP ASDIRECTED PRN Ondansetron [Zofran] 4 mg IV Q8H PRN diphenhydrAMINE [Benadryl] 25 mg IVPUSH Q6H PRN Assess Lochia [WOMSER] Per Unit Routine Assess Uterine Involution [WOMSER] Per Unit Routine Breast Pump [WOMSER] Per Unit Routine Heat Therapy [OM.PC] Per Unit Routine Peripheral IV Discontinue [OM.PC] Routine Sequential Compression Device [OM.PC] Per Unit Routine 06/20/19 Breakfast Regular Diet [DIET] 06/21/19 05:00 Blood Glucose Check, Bedside [RC] ONETIME 06/21/19 05:30 CBC W/O DIFF,HEMOGRAM [HEME] AM 06/21/19 08:30 Ibuprofen [Motrin] 600 mg PO Q6H PRN 06/21/19 08:47 Urinary Catheter Removal [RC] Per Unit Routine - Assessment Assessment:: 29 y.o G2 now P2002 POD#1 from [facility] - Plan Plan:: * Routine cares * CBC pending from this AM * Fasting glucose to be done this AM, then will need 2hr GTT at 6 weeks * Rh negative, has received Rhogam * Continue home Keppra for history of epilepsy. Follow up with Neurology as previously arranged * Discharge home in 1-2 days
--- NOTE | 2019-06-21 07:45 | PCM48HPAN ---
Post Anesthesia Note - EVALUATION WITHIN 48HRS OF ANESTHETIC Vital Signs in Normal Range: Yes Patient Participated in Evaluation: Yes Respiratory Function Stable: Yes Airway Patent: Yes Cardiovascular Function Stable: Yes Hydration Status Stable: Yes Pain Control Satisfactory: Yes Nausea and Vomiting Control Satisfactory: Yes Mental Status Recovered: Yes Vital Signs: Last Vital Signs Temp 36.9 C 06/20/19 20:22 Pulse 82 06/20/19 20:22 Resp 14 06/20/19 20:22 BP 124/73 06/20/19 20:22 Pulse Ox 97 06/20/19 20:22 - COMMENTS/OBSERVATIONS Free Text/Narrative:: no anesthesia complications noted
[2019-06-21] MEDS: Acetaminophen/oxyCODONE 325-5 MG Tab PO PRN ×3 (08:41→21:27)
[2019-06-21] MEDS: Docusate Sodium 100 MG Cap PO PRN (13:16)
[2019-06-21] MEDS: Ibuprofen 600 MG Tab PO PRN ×2 (13:16→20:10)
[2019-06-21] MEDS: LEVETIRACETAM PO SCH (21:47)
[2019-06-22] MEDS: Acetaminophen/oxyCODONE 325-5 MG Tab PO PRN ×3 (01:10→10:23)
[2019-06-22] MEDS: Docusate Sodium 100 MG Cap PO PRN (05:20)
--- NOTE | 2019-06-22 06:22 | PCM.DCSUM1 ---
Discharge Summary - Hospital Course Diagnosis: Stroke: No - Discharge Data Discharge Date: 06/22/19 Discharge Disposition: Home, Self-Care 01 Condition: Good - Patient Summary/Data Operative Procedure(s) Performed: Repeat low transverse - Discharge Plan *PRESCRIPTION DRUG MONITORING PROGRAM REVIEWED*: No *COPY OF PRESCRIPTION DRUG MONITORING REPORT IN PATIENT JESSICA: No Prescriptions/Med Rec: Acetaminophen/oxyCODONE [Percocet 325-5 MG] 1 - 2 tab PO Q6HR PRN 4 Days #30 tablet PRN Reason: Pain (Moderate 4-6) Home Medications: Home Meds PNV95/Ferrous Fumarate/FA [ Tablet] 1 each PO DAILY 08/14/17 [History] levETIRAcetam [Keppra Xr] 2,500 mg PO DAILY 08/14/17 [History] Acetaminophen/oxyCODONE [Percocet 325-5 MG] 1 - 2 tab PO Q6HR PRN 4 Days #30 tablet 06/22/19 [Rx] Patient's Own Medication [Ptom] 0 each PO DAILY each 06/22/19 [Rx] Referrals: Cora Shirley MD [Physician] - (2 weeks) - Discharge Summary/Plan Comment DC Time >30 min.: No - General Info Date of Service: 06/22/19 Functional Status: Reports: Pain Controlled - Review of Systems General: Reports: No Symptoms HEENT: Reports: No Symptoms Pulmonary: Reports: No Symptoms Cardiovascular: Reports: No Symptoms Gastrointestinal: Reports: No Symptoms Genitourinary: Reports: No Symptoms Musculoskeletal: Reports: No Symptoms Skin: Reports: No Symptoms Neurological: Reports: No Symptoms Psychiatric: Reports: No Symptoms - Patient Data Vitals - Most Recent: Last Vital Signs Temp 36.6 C 06/22/19 03:15 Pulse 62 06/22/19 03:15 Resp 14 06/22/19 03:15 BP 118/73 06/22/19 03:15 Pulse Ox 98 06/22/19 03:15 Weight - Most Recent: 81.193 kg I&O - Last 24 hours: Intake & Output 06/21/19 06/21/19 06/22/19 14:59 22:59 06:59 Intake Total 240 Output Total 1325 Balance -1085 Lab Results - Last 24 hrs: Laboratory Results - last 24 hr 06/21/19 06/21/19 Range/Units 05:30 06:24 WBC 8.60 (3.98-10.04) K/mm3 RBC 3.91 L (3.98-5.22) M/mm3 Hgb 10.6 L D (11.2-15.7) gm/L Hct 32.9 L (34.1-44.9) % MCV 84.1 (79.4-94.8) fl MCH 27.1 (25.6-32.2) pg MCHC 32.2 (32.2-35.5) g/dl RDW Std Deviation 47.1 H (36.4-46.3) fL Plt Count 167 L (182-369) K/mm3 MPV 11.7 (9.4-12.3) fl POC Glucose 75 (70-105) mg/dL Med Orders - Current: Current Medications Diphenhydramine HCl (Benadryl) 25 mg IVPUSH Q6H PRN PRN Reason: Pruritis Diphenhydramine HCl (Benadryl) 25 mg IVPUSH Q6H PRN PRN Reason: Itching or Nausea Docusate Sodium (Colace) 100 mg PO Q12H PRN PRN Reason: Constipation Last Admin: 06/22/19 05:20 Dose: 100 mg Emollient Ointment (Lansinoh Hpa) 0 gm TOP ASDIRECTED PRN PRN Reason: Sore Nipples Ephedrine Sulfate (Ephedrine Sulfate) 5 mg IVPUSH ASDIRECTED PRN PRN Reason: Hypotension Fentanyl (Sublimaze) 50 mcg IVPUSH Q5M PRN PRN Reason: Pain Ibuprofen (Motrin) 600 mg PO Q6H PRN PRN Reason: mild pain or fever Last Admin: 06/21/19 20:10 Dose: 600 mg Ondansetron HCl (Zofran) 4 mg IVPUSH ONETIME PRN PRN Reason: Nausea/Vomiting Ondansetron HCl (Zofran) 4 mg IV Q8H PRN PRN Reason: Nausea/Vomiting Oxycodone/Acetaminophen (Percocet 325-5 Mg) 1 - 2 tab PO Q4H PRN PRN Reason: Pain (moderate 4-6) Last Admin: 06/22/19 01:10 Dose: 1 tab Levetiracetam [ (Keppra Xr] 2,500 Mg) 0 each PO DAILY [facility] Last Admin: 06/21/19 21:47 Dose: Not Given Discontinued Medications Cefazolin Sodium (Ancef) Confirm Administered Dose 2 gm .ROUTE .STK-MED ONE Stop: 06/20/19 07:18 Citric Acid/Sodium Citrate (Bicitra Solution) 30 ml PO ONETIME ONE Stop: 06/20/19 01:04 Last Admin: 06/20/19 07:08 Dose: 30 ml Citric Acid/Sodium Citrate (Bicitra Solution) 30 ml PO ONETIME ONE Stop: 06/20/19 06:01 Last Admin: 06/20/19 07:08 Dose: Not Given Cefazolin Sodium/Dextrose 2 gm (/ Premix) 50 mls @ 100 mls/hr IV ONETIME ONE Stop: 06/20/19 07:29 Last Admin: 06/20/19 15:42 Dose: Not Given Lactated Ringer's (Ringers, Lactated) 1,000 mls @ 125 mls/hr IV ASDIRECTED [facility] Last Admin: 06/20/19 06:46 Dose: 125 mls/hr Oxytocin/Lactated Ringer's (Pitocin In Lr 10 Units/1,000 Ml) 10 unit in 1,000 mls @ 100 mls/hr IV ASDIRECTED [facility]; Protocol Lactated Ringer's (Ringers, Lactated) Confirm Administered Dose 2,000 mls @ as directed .ROUTE .STK-MED ONE Stop: 06/20/19 07:18 Dextrose/Lactated Ringer's (Dextrose 5%-Lactated Ringers) 1,000 mls @ 125 mls/ hr IV ASDIRECTED [facility] Stop: 06/20/19 18:10 Last Infusion: 06/20/19 14:27 Dose: Infused Ketorolac Tromethamine (Toradol) Confirm Administered Dose 30 mg .ROUTE .STK- MED ONE Stop: 06/20/19 07:18 Ketorolac Tromethamine (Toradol) 30 mg IVPUSH Q6H [facility] Stop: 06/21/19 02:31 Last Admin: 06/21/19 03:33 Dose: 30 mg Metoclopramide HCl (Reglan) 10 mg IVPUSH ONETIME ONE Stop: 06/20/19 01:04 Last Admin: 06/20/19 07:08 Dose: 10 mg Metoclopramide HCl (Reglan) 10 mg IVPUSH ONETIME ONE Stop: 06/20/19 06:01 Last Admin: 06/20/19 07:09 Dose: Not Given Morphine Sulfate (Duramorph Pf) Confirm Administered Dose 10 mg .ROUTE .STK-MED ONE Stop: 06/20/19 07:18 Ondansetron HCl (Zofran) Confirm Administered Dose 4 mg .ROUTE .STK-MED ONE Stop: 06/20/19 07:18 Oxytocin (Pitocin) Confirm Administered Dose 20 unit .ROUTE .STK-MED ONE Stop: 06/20/19 07:18 Phenylephrine HCl (Phenylephrine In Ns 100 Mcg/Ml) Confirm Administered Dose 1 mg .ROUTE .STK-MED ONE Stop: 06/20/19 08:26 Phenylephrine HCl (Phenylephrine In Ns 100 Mcg/Ml) Confirm Administered Dose 1 mg .ROUTE .STK-MED ONE Stop: 06/20/19 08:26 Sodium Chloride (Saline Flush) 10 ml FLUSH ASDIRECTED PRN PRN Reason: Keep Vein Open - Exam General: Reports: Alert, Oriented HEENT: Reports: Pupils Equal, Pupils Reactive, EOMI, Mucous Membr. Moist/[place] Neck: Reports: Supple Lungs: Reports: Clear to Auscultation, Normal Respiratory Effort Cardiovascular: Reports: Regular Rate, Regular Rhythm GI/Abdominal Exam: Normal Bowel Sounds, Soft, Non-Tender, No Organomegaly, No Distention Rectal (Female) Exam: Normal Exam, Normal Rectal Tone Back Exam: Reports: Normal Inspection, Full Range of Motion Extremities: Normal Inspection, Normal Range of Motion, Non-Tender, No Pedal Edema, Normal Capillary Refill Skin: Reports: Warm, Dry, Intact Wound/Incisions: Reports: Healing Well Neurological: Reports: No New Focal Deficit Psy/Mental Status: Reports: Alert, Normal Affect, Normal Mood
[2019-06-22] MEDS: Ibuprofen 600 MG Tab PO PRN (10:22)
[2019-06-22] MEDS: LEVETIRACETAM PO SCH (12:02)
== END 2019-06-22 10:35 | disposition home or self-care (01) | DRG 540 ==
LOC: JD.OB 05:30
PROVIDERS: ADMIT Obstetrics & Gynecology; ATTEND Obstetrics & Gynecology
PROC: 10D00Z1 Extraction of Products of Conception, Low, Open Approach (ICD-10-PCS; principal; 2019-06-20)
DX: O34.211 Maternal care for low transverse scar from previous cesarean delivery (principal); O24.420 Gestational diabetes mellitus in childbirth, diet controlled; O99.824 Streptococcus B carrier state complicating childbirth; O75.89 Other specified complications of labor and delivery; G40.909 Epilepsy, unspecified, not intractable, without status epilepticus; Z37.0 Single live birth; Z3A.39 39 weeks gestation of pregnancy
CPT/HCPCS: 36415; 36430; 59025; 82962; 85025; 85027; 85461; 86592; 86850; 86870; 86900; 86901; 94762; A9270-GY; J0690; J1885; J2270; J2370; J2405; J2590; J2765; J2790; J7042; J7120

== ENCOUNTER 2021-12-29 05:28 | Inpatient (IN) | payer BC ==
[~2021-12-29 05:28] MED LIST changes: -Citric Acid/Sodium Citrate Solution 30 ML Cup PO ONE; +Lactated Ringers 1,000 ML IV SCH; -Metoclopramide 10 MG/2 ML SDV IVPUSH ONE; +Oxytocin/Lactated Ringers 10 UNIT/1,000 ML BAG IV SCH
[2021-12-29] MEDS ORDERED: Metoclopramide 10 MG/2 ML SDV IVPUSH ONE (06:30)
[2021-12-29] MEDS ORDERED: Citric Acid/Sodium Citrate Solution 30 ML Cup PO ONE (06:30)
[2021-12-29] MEDS ORDERED: Citric Acid/Sodium Citrate Solution 30 ML Cup ONE (06:45)
[2021-12-29] MEDS ORDERED: Ketorolac 30 MG/ML SDV ONE (07:05)
[2021-12-29] MEDS ORDERED: Ondansetron 4 MG/2 ML SDV ONE (07:05)
[2021-12-29] MEDS ORDERED: ceFAZolin 1 GM Vial ONE (07:05)
[2021-12-29] MEDS ORDERED: Morphine PF 10 MG/10 ML SDV ONE (07:05)
[2021-12-29] MEDS ORDERED: Lactated Ringers 1,000 ML ONE (07:08)
[2021-12-29] MEDS ORDERED: Oxytocin 10 Units/1 ML SDV ONE (07:08)
[2021-12-29] MEDS: Metoclopramide 10 MG/2 ML SDV ONE ×2 (07:09→10:44)
[2021-12-29] MEDS ORDERED: ceFAZolin 2 GM in Sodium Chloride 0.9% 50 ML IV ONE (07:30)
[2021-12-29] MEDS ORDERED: fentaNYL 100 MCG/2 ML SDV IVPUSH PRN (08:12)
[2021-12-29] MEDS ORDERED: Ondansetron 4 MG/2 ML SDV IVPUSH PRN (08:12)
[2021-12-29] MEDS ORDERED: diphenhydrAMINE 50 MG/ML SDV IVPUSH PRN ×2 (08:12→10:05)
[2021-12-29] MEDS ORDERED: Naloxone 0.4 MG/ML SDV IVPUSH PRN (10:05)
[2021-12-29] MEDS ORDERED: ePHEDrine 50 MG/ML SDV IVPUSH PRN (10:05)
[2021-12-29] MEDS ORDERED: Dextrose 5%-Lactated Ringers 1,000 ML IV SCH (10:05)
[2021-12-29] MEDS ORDERED: Ondansetron 4 MG/2 ML SDV IV PRN (10:05)
[2021-12-29] MEDS: Ketorolac 30 MG/ML SDV IVPUSH SCH ×2 (14:59→20:42)
[2021-12-30] MEDS: Acetaminophen/oxyCODONE 325-5 MG Tab PO PRN ×4 (00:41→22:36)
[2021-12-30] MEDS: Ketorolac 30 MG/ML SDV IVPUSH SCH (02:30)
[2021-12-30] MEDS: Simethicone 80 MG Tab.Chew PO PRN ×2 (04:00→09:01)
[2021-12-30] MEDS ORDERED: LEVETIRACETAM 750 MG PO SCH (09:00)
[2021-12-30] MEDS: Docusate Sodium 100 MG Cap PO PRN ×2 (09:01→22:00)
[2021-12-30] MEDS: Ibuprofen 600 MG Tab PO PRN (17:12)
[2021-12-31] MEDS: Acetaminophen/oxyCODONE 325-5 MG Tab PO PRN (02:37)
[2021-12-31] MEDS: Ibuprofen 600 MG Tab PO PRN (08:10)
[2021-12-31] MEDS: Simethicone 80 MG Tab.Chew PO PRN (12:20)
[2021-12-31] MEDS ORDERED: LEVETIRACETAM PO SCH (21:00)
== END 2021-12-31 13:00 | disposition home or self-care (01) | DRG 540 ==
LOC: JD.OB 05:28
PROVIDERS: ADMIT Obstetrics & Gynecology; ATTEND Obstetrics & Gynecology
PROC: 10D00Z1 Extraction of Products of Conception, Low, Open Approach (ICD-10-PCS; principal; 2021-12-29)
PROC: 3E0334Z Introduction of Serum, Toxoid and Vaccine into Peripheral Vein, Percutaneous Approach (ICD-10-PCS; 2021-12-30)
DX: O34.211 Maternal care for low transverse scar from previous cesarean delivery (principal); Z37.0 Single live birth; O99.354 Diseases of the nervous system complicating childbirth; G40.909 Epilepsy, unspecified, not intractable, without status epilepticus; O26.893 Other specified pregnancy related conditions, third trimester; O24.420 Gestational diabetes mellitus in childbirth, diet controlled; Z3A.39 39 weeks gestation of pregnancy; Z67.11 Type A blood, Rh negative
CPT/HCPCS: 01961; 36415; 59025; 82947; 85025; 85027; 85461; 86592; 86850; 86870; 86900; 86901; 94762; A9270-GY; J0690; J1885; J2274; J2370; J2405; J2590; J2765; J2790; J7120; J7121

== ENCOUNTER 2024-12-12 08:12 | Emergency (ER) | payer BC ==
[2024-12-12 09:28] LABS: BASOPHILS PERCENT AUTO 0.3 % (0.0-1.0); EOSINOPHILS ABSOLUTE AUTO 0.1 K/mm3 (0.0-0.4); EOSINOPHILS PERCENT AUTO 1.2 % (0.0-6.0); HEMATOCRIT 43.3 % (37.0-47.0); HEMOGLOBIN 15.2 gm/dl (12.0-16.0); IMMATURE GRAN ABSOLUTE AUTO 0.01 K/mm3 (0.00-0.05); IMMATURE GRAN PERCENT AUTO 0.2 % (0.0-0.4); LYMPHOCYTES ABSOLUTE AUTO 1.4 K/mm3 (1.0-4.8); LYMPHOCYTES PERCENT AUTO 24.8 % (24.0-44.0); MEAN CORPUSCULAR HEMOGLOBIN 30.3 pg (28.0-32.0); MEAN CORPUSCULAR HGB CONC 35.1 g/dl (32.0-36.0); MEAN CORPUSCULAR VOLUME 86.3 fl (83.0-99.0); MEAN PLATELET VOLUME 10.6 fl (9.4-12.3); MONOCYTES ABSOLUTE AUTO 0.6 K/mm3 (0.0-0.8); MONOCYTES PERCENT AUTO 10.2 % (0.0-8.0); NEUTROPHILS ABSOLUTE AUTO 3.7 K/mm3 (1.8-7.7); NEUTROPHILS PERCENT AUTO 63.3 % (41.0-71.0); PLATELET COUNT,PLT 180 K/mm3 (150-400); RED BLOOD CELL COUNT 5.02 M/mm3 (4.10-5.30); WHITE BLOOD CELL COUNT,WBC 5.81 K/mm3 (3.9-11.3)
[2024-12-12] MEDS: Alum Hydrox/Mag Hydrox/Simeth 30 ML, Lidocaine 2% 15 ML PO ONE (09:31)
[2024-12-12 09:54] LABS: A/G RATIO 1.2 (1-2); ALANINE AMINOTRANSFERASE,ALT 42 U/L (14-59); ALBUMIN 3.9 g/dl (3.4-5.0); ALKALINE PHOSPHATASE 40 U/L (46-116); ANION GAP 11.8 (5-15); ASPARTATE AMNIOTRANSFERASE,AST 21 U/L (15-37); BILIRUBIN TOTAL 0.4 mg/dL (0.2-1.0); BLOOD UREA NITROGEN,BUN 11 mg/dL (7-18); BUN/CREATININE RATIO 12.2 (14-18); CALCIUM 9.4 mg/dL (8.5-10.1); CARBON DIOXIDE,CO2 29 mEq/L (21-32); CHLORIDE,CL 103 mEq/L (98-107); CREATININE 0.9 mg/dL (0.55-1.02); EST CRCL DRUG DOSING (CG) 65.21 mL/min; ESTIMATED GFR 85 mL/min (>60); GLUCOSE RANDOM 86 mg/dL (70-99); POTASSIUM,K 3.8 mEq/L (3.5-5.1); PROTEIN TOTAL,TP 7.2 g/dl (6.4-8.2); SODIUM,NA 140 mEq/L (136-145)
[2024-12-12 09:56] LABS: TROPONIN I HIGH SENSITIVITY < 4 pg/mL (<=51)
== END 2024-12-12 10:54 | disposition home or self-care (01) ==
LOC: JD.ED 08:12
DX: K21.9 Gastro-esophageal reflux disease without esophagitis (principal); R20.2 Paresthesia of skin; Z91.048 Other nonmedicinal substance allergy status; Z88.5 Allergy status to narcotic agent; Z79.899 Other long term (current) drug therapy; Z86.16 Personal history of COVID-19
CPT/HCPCS: 36415; 71046; 80053; 84484; 85025; 93005; 99285; A9270